=== PATIENT | female | born 1955 | race Caucasian/White ===

== ENCOUNTER 2020-01-21 00:45 | Outpatient (CLI) | payer OTHER, SELFPAY ==
[2020-01-21 17:37] LABS: SARS-CoV-2 RNA PCR Negative
== END 2020-01-21 00:46 | disposition home or self-care (01) ==
LOC: ANHCOVIDDT 00:45
PROVIDERS: PCP Student in an Organized Health Care Education/Training Program; Visit Provider Internal Medicine Gastroenterology
DX: Z01.812 Encounter for preprocedural laboratory examination (principal); Z20.828 Contact with and (suspected) exposure to other viral communicable diseases
CPT/HCPCS: 87635; C9803; U0003

== ENCOUNTER 2020-01-24 00:35 | Day surgery (SDC) | payer OTHER, SELFPAY ==
[2020-01-16 14:44] VITALS: BMI 22.7
[2020-01-24 06:54] VITALS: BP 149/87; PULSE 73; RESP 16; TEMP 36.8; O2SAT 99; BMI 23.6
[2020-01-24] MEDS: LACTATED RINGERS 1,000 ML 150 ML IV CONT (07:06)
--- NOTE | 2020-01-24 07:12 | WPDANESEPPF ---
Anes - Initial Pre Proc Eval Procedure: Operation Date: 01/24/20 08:00 Proposed Procedures p Esophagogastroduodenoscopy - Westley Cha MD Date/Time: 01/24/20 07:12 Surgeon: Westley Cha MD Pre Op Diagnosis: Gerd/ Dysphagia Patient Data Age: 64 Gender: F Height: 5 ft 7 in Weight: 68.5 kg Last Vital Signs Temp 36.8 C 01/24/20 06:54 Pulse 73 01/24/20 06:54 Resp 16 01/24/20 06:54 BP 149/87 H 01/24/20 06:54 Pulse Ox 99 01/24/20 06:54 Allergies Allergy/AdvReac Type Severity Reaction Status Date / Time nitrofurantoin Allergy Unknown Nausea Verified 01/24/20 06:49 Home Medications Medication Instructions Recorded Confirmed Type evolocumab [Repatha SureClick] 140 mg SUBCUT 2XW 01/16/20 01/16/20 History lisinopril 10 mg PO DAILY 01/16/20 01/24/20 History pantoprazole 40 mg PO BID 01/16/20 01/24/20 History venlafaxine 225 mg PO BID 01/16/20 01/24/20 History Patient hx anesthesia problems: none Family hx anesthesia problems: none PMFSH Past Medical History Medical History (Updated 01/24/20 @ 07:13 by Maynor Montalvo MD) Dysphagia HTN (hypertension) Hyperlipidemia NHAN on CPAP Surgical History Surgical History (Updated 01/24/20 @ 07:13 by Maynor Montalvo MD) H/O colonoscopy Social History Social History Substance use type: does not use Living arrangements: with family Gender identity (if verbalized by the patient): Female Spiritual care concerns: No Anes - Eval Final PreProcedure Day of Procedure 01/24/20 07:12 Patient weight: normal Heart: regular rate and rhythm Lungs: clear to auscultation Airway: Mallampati scale class II and class III and special considerations poor opening Neurological: alert and oriented Last oral intake: >/= 8 hours ASA classification: III Emergent: no Anesthetic plan: proceed Anesthesia type and monitoring: general GIVS and standard monitoring Informed Consent: The patient's anesthetic plan and its attendant risks and benefits were discussed with the patient/family/POA. Questions were solicited and answers provided to the satisfaction of the patient/family/POA.
--- NOTE | 2020-01-24 07:25 | P.CONGI_ITS ---
Assessment and Plan Assessment and plan (1) GERD (gastroesophageal reflux disease): Code(s): K21.9 - Gastro-esophageal reflux disease without esophagitis Status: Acute (2) Dysphagia: Code(s): R13.10 - Dysphagia, unspecified Status: Acute Assessment and Plan: Patient has difficulty swallowing. Suggesting some narrowing of the esophagus or delayed motility. Plan is for EGD to assess more thoroughly. Patient is felt to have acid reflux for which she chronically has been on proton pump inhibitors. Further recommendations may be given after endoscopy. GI Consult Note Consult date/time: 01/24/20 07:25 HPI: Jarad Jj is a 64 year old female seen at the request of DR Twin Claros. Patient has had heartburn for 25 years. Notes difficulty passing foods. Solids past more slowly in the chest compared to liquids. Often has difficulty even swallowing liquids. In the past been told she had GE reflux disease. She was known to have esophagitis. Apparently had sore esophagus by EGD 15 years ago. Her symptoms of difficulty swallowing have worsened over the last 4 months. Patient denies any bleeding. She denies any weight loss. Current medications include pantoprazole 40 mg p.o. b.i.d.. Patient presents today for EGD. [facility] Past Medical History Medical History (Updated 01/24/20 @ 07:27 by Westley Cha MD) Dysphagia HTN (hypertension) Hyperlipidemia NHAN on CPAP Surgical History Surgical History (Updated 01/24/20 @ 07:13 by Maynor Montalvo MD) H/O colonoscopy Social History Social History Substance use type: does not use Living arrangements: with family Gender identity (if verbalized by the patient): Female Spiritual care concerns: No Meds Home Medications and Allergies Home Medications Medication Instructions Recorded Confirmed Type evolocumab [Repatha SureClick] 140 mg SUBCUT 2XW 01/16/20 01/16/20 History lisinopril 10 mg PO DAILY 01/16/20 01/24/20 History pantoprazole 40 mg PO BID 01/16/20 01/24/20 History venlafaxine 225 mg PO BID 01/16/20 01/24/20 History Allergies Allergy/AdvReac Type Severity Reaction Status Date / Time nitrofurantoin Allergy Unknown Nausea Verified 01/24/20 06:49 Vital Signs Vital Signs - 24 hr 01/24/20 06:54 Temperature 98.2 F Pulse Rate 73 Respiratory Rate 16 Blood Pressure 149/87 H Pulse Oximetry 99 Exam Narrative: Exam Narrative: Physical exam reveals patient to be alert. Vital signs stable. HEENT exam unremarkable. Patient is anicteric. Lungs are clear to auscultation and percussion. Heart is without murmur or extra sounds. Abdominal exam bowel sounds are present soft nontender with no organomegaly. Rectal exam is deferred at this time.
[2020-01-24] MEDS: BENZOCAINE (*SP) 60 ML SPRAY CAN (HURRICAINE) 1 SPRAY MUCOUS MEM (08:02)
[2020-01-24 08:23] VITALS: BP 134/79; PULSE 80; RESP 20; O2SAT 98
[2020-01-24 08:33] VITALS: BP 133/83; PULSE 65; RESP 20; O2SAT 100
[2020-01-24 08:43] VITALS: BP 138/96; PULSE 66; RESP 14; O2SAT 100
== END 2020-01-24 08:57 | disposition home or self-care (01) ==
PROVIDERS: PCP Student in an Organized Health Care Education/Training Program; Visit Provider Internal Medicine Gastroenterology
PROC: 0DJ08ZZ Inspection of Upper Intestinal Tract, Via Natural or Artificial Opening Endoscopic (ICD-10-PCS; CPT 43235; principal; 2020-01-24 08:00)
DX: K21.9 Gastro-esophageal reflux disease without esophagitis (principal); Q39.4 Esophageal web; K44.9 Diaphragmatic hernia without obstruction or gangrene; I10 Essential (primary) hypertension; E78.5 Hyperlipidemia, unspecified; G47.33 Obstructive sleep apnea (adult) (pediatric)
CPT/HCPCS: 43450; 43235; C1726; J2704; J7120

== ENCOUNTER 2020-07-20 12:47 | Outpatient (CLI) | payer OTHER, SELFPAY ==
[2020-07-20 13:15] VITALS: PULSE 77; O2SAT 98
[2020-07-20 13:20] VITALS: PULSE 99; O2SAT 97
--- NOTE | 2020-07-20 13:30 | HOMEO2EVAL ---
Evaluation was performed at [facility] Home Oxygen Evaluation RC: Home Oxygen (O2) Evaluation Start: 07/20/20 13:27 Freq: Status: Active Protocol: RPE Activity Type Activity Date Activity User E-Sign Co-Sign Detail Recorded Client Recorded Date Recorded By Document 07/20/20 13:15 KLA [id number] 07/20/20 13:30 KLA Document 07/20/20 13:20 KLA [id number] 07/20/20 13:30 KLA 07/20/20 07/20/20 13:15 13:20 Home O2 Evaluation Test Phase Resting Exercise Oxygen Delivery Room Air Room Air Pulse Oximetry (90-100 %) 98 97 Pulse Rate (60-100 beats/min) 77 99 Activity Tolerance Excellent Ambulation Distance (feet) 400 Treatment Charges O2 Evaluation - Outpatient
--- NOTE | 2020-07-20 17:00 | P.PCNPFT_ITS ---
PFT Interpretation This is a pulmonary function test with pre and post-bronchodilator spirometry, plethysmography and diffusing capacity. The test was performed and results interpreted in accordance with the 2019 and 2005 ATS/ERS Task Force guidelines respectively using the Global Lung Function Initiative-2012 reference equations. Patient demonstrated good effort and c ooperation. Reproducibility criteria were met. The quality of the pre bronchodilator spirometry maneuver was Grade B and post bronchodilator spirometry maneuver was Grade B. Findings: Spirometry: There is decreased maximal expiratory airflow at low lung volumes with a mildly concave expiratory flow tracing. The pre bronchodilator FVC is 3.32 L, 101% predicted. The pre bronchodilator FEV1 is 2.35 L, 92% predicted. The FEV1: FVC ratio 71%. The post bronchodilator FVC is 3.39 L, representing a 2% increase. The post bronchodilator FEV1 is 2.48 L, representing a 5% increase. Plethysmography: Total lung capacity is 5.69 L, 106% predicted. The functional residual capacity is 3.44 L, 112% predicted. The residual volume is 1.95 L, 90% predicted. Diffusing capacity: The absolute diffusion capacity is 17.6, 80% predicted. The diffusing capacity corrected for alveolar volume is 4.19, 98% predicted. Impression: The spirometry is normal without evidence of an obstructive abnormality. There is no significant improvement after inhaling a single dose of albuterol. The lung volumes are normal. The diffusing capacity is normal. There are no prior studies for comparison Report PFT PFT Procedure Performed PFT Procedure Performed Spirometry with Pre/Post Bronchodilator Plethysmography (Lung Vol) Diffusing Cap (DLCO)
== END 2020-07-20 12:48 | disposition home or self-care (01) ==
PROVIDERS: PCP Student in an Organized Health Care Education/Training Program; Visit Provider Internal Medicine Pulmonary Disease
DX: R06.02 Shortness of breath (principal); R06.00 Dyspnea, unspecified
CPT/HCPCS: 94060; 94618; 94726; 94729

== ENCOUNTER 2020-08-23 07:56 | Outpatient (CLI) | payer OTHER, SELFPAY ==
--- NOTE | ~2020-08-23 | MM_ITS ---
EXAMINATION: MM screening [facility] BI w milan HISTORY: Screening TECHNIQUE: Craniocaudal and mediolateral oblique 3-D tomosynthesis images were obtained and synthetic 2-D images were generated. CAD analysis was submitted and interpreted. COMPARISON: Comparison to multiple prior studies sequentially, with oldest reviewed study dated 02/06. BREAST PARENCHYMAL COMPOSITION: There are scattered areas of fibroglandular density. FINDINGS: There is no evidence of suspicious mass, calcification, or architectural distortion to sugg est malignancy in either breast. There has been no suspicious interval change. IMPRESSION: 1. No mammographic evidence of malignancy. 2. Recommend routine screening mammography in one year. BI-RADS Category 1: Negative Reviewed, dictated and finalized at location A.
== END 2020-08-23 07:57 | disposition home or self-care (01) ==
PROVIDERS: PCP Student in an Organized Health Care Education/Training Program; Visit Provider Student in an Organized Health Care Education/Training Program
DX: Z12.31 Encounter for screening mammogram for malignant neoplasm of breast (principal)
CPT/HCPCS: 77063; 77067

== ENCOUNTER → 2020-10-03 17:42 | Outpatient (CLI) | payer OTHER, SELFPAY ==
--- NOTE | ~2020-10-03 | XR_ITS ---
EXAMINATION: XR chest 2V EXAM DATE: 10/03/2020 17:56 INDICATION: R06.02 - Shortness of breath . Cough. Symptoms 6 months. TECHNIQUE: Frontal and lateral projections of the chest obtained and reviewed. Comparison is made to prior examination from 08/08/2007. FINDINGS: There is large gastroesophageal hiatal hernia. There is right basilar granuloma. Some biapi lulú scarring. The lungs are hyperinflated which can be seen with chronic obstructive pulmonary diseas e (a clinical diagnosis of functional impairment), but is not diagnostic of it. No confluent consolid ation, pneumothorax or pleural effusion suspected. Cardiomediastinal silhouette is normal. IMPRESSION: 1. Large hiatal hernia. 2. Hyperinflation. Reviewed, dictated and finalized at location G.
== END ==
PROVIDERS: Visit Provider Internal Medicine Pulmonary Disease
DX: R06.02 Shortness of breath (principal); K44.9 Diaphragmatic hernia without obstruction or gangrene
CPT/HCPCS: 71046

== ENCOUNTER 2020-11-05 10:25 | Outpatient (CLI) | payer OTHER, SELFPAY ==
--- NOTE | ~2020-11-05 | CT_ITS ---
EXAMINATION:CT diagnostic chest wo con DATE: 11/05/2020 11:05 INDICATION: Chronic shortness of breath. TECHNIQUE: Computed tomography (CT) of the chest was performed without intravenous contrast. Automate d exposure control and iterative reconstruction technique were employed. The dose-length product (DLP ) was 143.50 mGy-cm. COMPARISON: Chest CT 08/09/2007, chest 2 views 10/03/2020 FINDINGS: There is chronic mild scarring at the lung apices. There is a pneumatocele in right lower l obe. A calcified right lung nodule and calcified right hilar and mediastinal lymph nodes are consiste nt with old granulomatous disease. No pleural effusion. The heart size is normal. No pericardial effu adrianna. There is a large sliding hiatal hernia. There are changes of cholecystectomy. There is diffuse hepatic steatosis. There is mild thoracic spondylosis. There is a benign bone island in T5 vertebral body. IMPRESSION: 1. Chronic mild scarring at the lung apices. 2. Large sliding hiatal hernia. Reviewed, dictated and finalized at location A.
== END 2020-11-05 10:26 | disposition home or self-care (01) ==
PROVIDERS: PCP Student in an Organized Health Care Education/Training Program; Visit Provider Internal Medicine Pulmonary Disease
DX: R06.02 Shortness of breath (principal); K44.9 Diaphragmatic hernia without obstruction or gangrene
CPT/HCPCS: 71250

== ENCOUNTER 2021-01-14 08:19 | Outpatient (CLI) | payer OTHER, SELFPAY ==
--- NOTE | ~2021-01-14 | XR_ITS ---
EXAMINATION: XR UGIAC w barium swallow EXAM DATE: 01/14/2021 09:01 INDICATION: K44.9 - Diaphragmatic hernia without obstruction or gangrene. TECHNIQUE: Standard single and double contrast barium esophagram and upper GI examination was perform ed by radiologist Mani Plascencia M.D. Pulsed dose reduction fluoroscopy was used with fluoroscopic time of 0.6 minutes. A KUB obtained after the procedure. The DAP for this procedure was 3.4 Gycm2. A tot al of 99 images obtained for the exam. Correlation is made to CT chest 11/05/2020. FINDINGS: There are cholecystectomy clips. The pharynx is symmetric and without evidence of mass le adrianna or mucosal irregularity. There is no esophageal stricture, diverticulum or mass identified. The re is moderate presbyesophagus. There is a large sliding gastroesophageal hiatal hernia, gastric card ia and half of the gastric body in the chest. The stomach has a normal appearance without evidence of mass lesion, ulceration or filling defect. T here is normal rugal fold pattern. The duodenum and duodenal sweep are normal in appearance. IMPRESSION: 1. Large gastroesophageal hiatal hernia. 2. Moderate presbyesophagus. Reviewed, dictated and finalized at location A.
== END 2021-01-14 08:20 | disposition home or self-care (01) ==
LOC: ANHIMG 08:23
PROVIDERS: PCP Student in an Organized Health Care Education/Training Program; Visit Provider Surgery
DX: K44.9 Diaphragmatic hernia without obstruction or gangrene (principal); K22.89 Other specified disease of esophagus
CPT/HCPCS: 74246

== ENCOUNTER 2021-02-14 10:26 | Outpatient (CLI) | payer OTHER, SELFPAY ==
--- NOTE | ~2021-02-14 | XR_ITS ---
EXAMINATION: XR chest 2V DATE: 02/14/2021 10:52 INDICATION: Gastroesophageal reflux disease without esophagitis TECHNIQUE: Frontal and lateral views of the chest are obtained COMPARISON: 10/03/2020 FINDINGS: There is scarring of the lung apices. The lungs are free of acute opacities. There is no pl eural effusion or pneumothorax. The heart size is normal. There is a large hiatal hernia. There is mi ld thoracic spondylosis. IMPRESSION: 1. No acute cardiopulmonary abnormality. 2. Large hiatal hernia. Reviewed, dictated and finalized at location B. RAISER
--- NOTE | 2021-02-14 10:30 | ECG_ITS ---
Measurements Intervals [place] Rate: 74 P: 66 VA: 130 QRS: 60 QRSD: 93 T: 39 QT: 347 QTc: 386 Interpretive Statements SINUS RHYTHM POSSIBLE LEFT ATRIAL ENLARGEMENT DELAYED PRECORDIAL R/S TRANSITION BASELINE ARTIFACT- II, III, AVF BORDERLINE ECG Electronically Signed On 02-14-2021 19:30:33 SAND WHEELER by Alex Huddleston D.O.
[2021-02-14 11:12] LABS: Basophils Percent Auto 0.7 % (0.2-1.2); Eosinophils Absolute Auto 0.3 K/mm3 (0-0.3); Eosinophils Percent Auto 5.3 % (0-4.4); Hematocrit 45.8 % (37.0-47.0); Hemoglobin 15.1 g/dL (12.0-15.0); Immature Granulocyte Absolute 0.01 K/mm3 (0.00-0.031); Immature Granulocyte Percent A 0.2 % (0-0.5); Lymphocytes Absolute Auto 2.25 K/mm3 (0.9-3.2); Lymphocytes Percent Auto 41.4 % (18.3-44.2); Mean Corpuscular Hemoglobin 30.2 pg (26-34); Mean Corpuscular Volume 91.6 fl (80-100); Mean Platelet Volume 10.9 fl (7.4-10.4); Monocytes Absolute Auto 0.4 K/mm3 (0.1-0.6); Monocytes Percent Auto 7.4 % (2.6-8.5); Neutrophils Absolute Auto 2.4 K/mm3 (1.3-6.7); Platelet Count Result 271 k/mm3 (150-375); Red Cell Distribution Width 12.6 % (11.5-14.5); White Blood Count 5.4 K/mm3 (4.5-10.0)
[2021-02-14 11:26] LABS: Anion Gap 11 mmol/L (8-16); Blood Urea Nitrogen 12 mg/dL (7-17); Calcium 9.4 mg/dL (8.4-10.2); Carbon Dioxide 25 mmol/L (22-30); Chloride 105 mmol/L (98-107); Estimated Glomerular Filt Rate > 60; Glucose 127 mg/dL (65-110); Potassium 4.2 mmol/L (3.4-5.0); Sodium 141 mmol/L (137-145)
== END 2021-02-14 10:27 | disposition home or self-care (01) ==
LOC: ANHSURGERY 10:29
PROVIDERS: PCP Student in an Organized Health Care Education/Training Program; Visit Provider Surgery
DX: K44.9 Diaphragmatic hernia without obstruction or gangrene (principal); K21.9 Gastro-esophageal reflux disease without esophagitis; R94.31 Abnormal electrocardiogram [ECG] [EKG]
CPT/HCPCS: 36415; 71046; 80048; 85025; 86850; 86900; 86901; 93005

== ENCOUNTER 2021-02-22 14:21 | Inpatient (IN) | payer OTHER, SELFPAY ==
[2021-02-13 12:47] VITALS: BMI 22.8
--- NOTE | 2021-02-13 12:54 | PC.NURSE ---
Addendum entered by Becka Dias RN 02/15/21 09:32: PT CALLED IN, STATES DATE OF SURGERY ON INSTRUCTIONS SAYS 02/22, SHOULD BE 02/21. CONFIRMED WITH PT THAT SURGERY IS 02/21/21 AND ARRIVAL TIME IS 0830 WITH SURGERY AT 1030. Original Note: Report to the Outpatient Waiting Room, entrance under the green pavilion located off [facility], at time _0830__ on date 02/22/21_. OR Time: _1030__. - You and your visitor will be asked a series of questions to screen for COVID 19 for your protection. - A mask is required within the hospital. - Only one visitor is allowed at this time. Patient visitors will be guided where to wait when not with patient. Preoperative COVID Testing Requirements: No COVID Test needed if: (proof is required; if not received patient will have Rapid Test prior to entry) - Patient has received COVID Vaccine at least 14 days prior to procedure date or - Patient has positive COVID test result within last 90 days of surgery date. COVID Test needed if above criteria is not met If not COVID vaccinated a COVID test must be conducted within 72 hours of surgery and patient is asked to isolate self from time of testing until procedure. You will go to the [facility] for your COVID testing. The [facility] site is located at the corner of [address] [facility]. You will only be called if COVID results are positive and your surgeon may reschedule your elective surgery date. Patients may have clear liquids (water, carbonated beverages, clear teas, apple juice) until 3 hours prior to surgery (0730) with a maximum of 20 ounces. - No food from midnight until time of surgery - Infants may have breast milk until 4 hours before surgery, formula 6 hours prior to surgery. - Children will be allowed to drink immediately following surgery. If applicable, please bring a bottle or sippy cup to assist with drinking. Juice, water, soda, and popsicles are readily available. For infants on formula, please bring formula the day of surgery. Pacifiers are allowed. Take the following medications with a SIP of water the morning of surgery: ___VENLAFAXINE, INHALER IF NEEDED Medications to discontinue per physician Date to take last dose Please no make-up, nail citizen of [place], hairspray, perfume, deodorant, or body powder the day of surgery. No jewelry (including any body piercings) or valuables the day of surgery, leave them at home. Please take a shower or bath the night before, or the morning of, surgery with an antibacterial soap. Wear comfortable, loose fitting clothing. Children are encouraged to wear pajamas. - Jewelry must be removed prior to entering the operating room. Rings and piercings that are not removed may be cut off. - The hospital will not accept responsibility for valuables. - Please leave all valuables, including medications, at home the day of surgery. If you are going home after surgery, a licensed river driver must drive you home. - NO public transportation without another adult. - We recommend that an adult stay with you for 24 hours following discharge. - We also recommend that you do not drive, make important decision, drink alcoholic beverages, or take any drugs that were not prescribed by your health care provider for at least 24 hours after your discharge time. For Pediatric surgeries, we recommend two adults accompany the child home (only one inside the building at this time). Follow any additional instructions given to you from your surgeon. [facility] AM OF SURGERY Telephone instructions given to ___PT____and asked if any additional questions and then verbalized understanding. Patient advised to call surgeon office or pre surgery nurse liaison [phone] if any additional questions.
--- NOTE | 2021-02-19 12:27 | PM.IMHP ---
H&P: HPI History of Present Illness Date/Time: 02/19/21 12:27 Chief Complaint: acid reflux, epigastric abdominal pain Narrative: Ms. Jj is a 65 year old female who presents for a surgical evaluation for a large hiatal hernia at the request of Jaki Moran N.P. Patient has a long history of acid reflux, dysphagia and epigastric pain. She notes a cough and shortness of breath for the last 9 months. She feels like a a tightening in the upper chest. She will be walk and feel like she is unable to take get a breath. She has been worked up by pulmonology and was placed on inhalers to see if this would improve her dyspnea. She is a non smoker. She is has been taking Protonix 40mg BID without success. She was recently changed to Omeprazole 40 mg daily. She reports that gets nauseated and some foods gets stuck in the epigastric area. A EGD was performed on 01-24-[address] 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 The esophageal web appeared at a depth of 30 cm from the incisions. A Walker bougie dilation was performed. The size was 50 FR. A TTS balloon dilation was performed using 15 mm, 16.5mm and 18 mm balloons. A large hiatal hernia was found in the gastric cardia. The hiatal hernia appear at a depth of 30 cm to 40 cm from the incisors. The gastroesophageal junction was 30 cm from the incision. She was recommended to continue Pantoprazole 40 mg BID. A chest x-ray was performed on 09-23-20 which showed a large hiatal hernia. A Ct scan diagnostic chest without contrast performed on 11-05-20 showed chronic mild scarring a the lung apices and large sliding hiatal hernia. patient underwent an esophagram with upper GI on 01/14/2021. This showed a large gastroesophageal hiatal hernia and moderate presbyesophagus. Half of the gastric body was noted to be in the chest. Esophageal manometry done 01/04/2021 showed adequate esophageal body peristalsis. There was some elevated post swallow residual pressures and hiatal hernia. Patient is taken to surgery at this time for laparoscopic repair of large hiatal hernia with Josh fundoplication. She is currently on inhalers for possible asthma, HTN, GERD and depression. Her current BMI 24.1. She had a laparoscopic cholecystectomy about 10 years ago. Review of Systems Review of Systems: All systems reviewed & are unremarkable except as noted in HPI and below Constitutional: Constitutional: Denies chills and Denies fever(s) Cardiovascular: Cardiovascular: Denies chest pain, Denies diaphoresis, Denies dyspnea and Denies paroxysmal nocturnal dyspnea Respiratory: Respiratory: Denies chest congestion, Denies cough and Denies dyspnea Integumentary/Breasts: Skin/Breast: Denies lesions and Denies rash PMFSH Past Medical History Medical History Dysphagia GERD (gastroesophageal reflux disease) Hiatal hernia HTN (hypertension) Hyperlipidemia NHAN on CPAP Surgical History Surgical History H/O colonoscopy History of cholecystectomy Family History Family History Grandparent Diabetes mellitus Cerebrovascular accident Social History Social History Smoking status: Never smoker Second hand tobacco smoke exposure: No Alcohol intake: current Alcohol use details: STATES MAYBE 2/MONTH Substance use: never Substance use type: does not use 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
--- NOTE | 2021-02-20 14:14 | P.PNAN_ITS ---
Anes - Initial Pre Proc Eval Procedure: Operation Date: 02/21/21 10:30 Proposed Procedures p Laparoscopic Josh Fundoplication - Rommel Pearce MD Date/Time: 02/20/21 14:14 Surgeon: Rommel Pearce MD Pre Op Diagnosis: GERD, Hiatal Hernia Patient Data Age: 66 Gender: F Height: 1.68 m Weight: 64.09 kg Allergies Allergy/AdvReac Type Severity Reaction Status Date / Time nitrofurantoin Allergy Unknown Nausea Verified 02/13/21 12:43 Home Medications Medication Instructions Recorded Confirmed Type evolocumab [Repatha SureClick] See Rx Instructions .ROUTE .COMPLEX 01/16/20 02/21/21 History lisinopril 10 mg PO DAILY 01/16/20 02/21/21 History venlafaxine 225 mg PO BID 01/16/20 02/21/21 History cholecalciferol (vitamin D3) 125 125 mcg PO DAILY 07/05/20 02/21/21 History mcg (5,000 unit) capsule albuterol sulfate 90 mcg/actuation 2 inh INHALATION Q4H PRN #8.5 g 11/08/20 02/21/21 Rx aerosol inhaler omeprazole 40 mg capsule,delayed 40 mg PO DAILY #30 cap 11/19/20 02/21/21 Rx release Patient hx anesthesia problems: none Family hx anesthesia problems: none Results Review: All pre-operative results and documents have been reviewed as part of the pre-operative evaluation. [facility] Past Medical History Medical History (Updated 02/20/21 @ 14:15 by Deven Ng MD) Anxiety Depression Dysphagia GERD (gastroesophageal reflux disease) Hiatal hernia HTN (hypertension) Hyperlipidemia NHAN on CPAP Surgical History Surgical History H/O colonoscopy History of cholecystectomy Family History Family History Grandparent Diabetes mellitus Cerebrovascular accident Social History Social History Smoking status: Never smoker Second hand tobacco smoke exposure: No Alcohol intake: current Alcohol use details: social Substance use: never Substance use type: does not use Living arrangements: with family 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 Informed Consent: The patient's anesthetic plan and its attendant risks and benefits were discussed with the patient/family/POA. Questions were solicited and answers provided to the satisfaction of the patient/family/POA.
[2021-02-21] VITALS (13 sets, daily range): BP systolic 114–173; BP diastolic 69–94; PULSE 77–95; RESP 14–18; TEMP 36.3–37; O2SAT 94–99
[2021-02-21] MEDS: LACTATED RINGERS 1,000 ML 30 ML IV CONT ×2 (09:35→14:22)
--- NOTE | 2021-02-21 10:56 | WPDHPUPDATE1 ---
History and Physical Update Update Date/Time: 02/21/21 10:56 History and Physical has been reviewed, including an updated exam of the patient. There are NO changes in the patient's condition. Risks, benefits, and alternatives have been discussed and questions answered. Patient agrees to proceed with procedure.
[2021-02-21] MEDS: SCOPOLAMINE 1.5 MG PATCH TRANSDERM (11:03)
[2021-02-21] MEDS: ceFAZolin 2 GM/D5W 50 ML 2 GM/50 ML BAG IVPB (11:11)
[2021-02-21] MEDS: BUPIVACAINE HCL 0.5% PF 30 ML VIAL INFILTRATE (11:48)
--- NOTE | 2021-02-21 14:49 | SUR.PHASEI ---
1425; PT FACE RED, RT EYE SWELLING, BILAT CHEEKS MILD SWELLING. HOB ELEVATED 30 DEGREES. ANDIE PAINTER ROUGH STATES FROM THE GAS USED IN OR
--- NOTE | 2021-02-21 15:28 | SUR.PHASEI ---
pt c/o bilat shoulder discomfort. Dr Pearce at bedside. DIscussing facial and rt eye swelling from air/gas inflation. Along with shoulder discomfort
--- NOTE | 2021-02-21 16:04 | PC.NURSE ---
This patient, Jarad Jj, was admitted to Medical Room 257-01. Patient/family oriented to hospital policies and general routines including ID bracelet, bed and alarms, visiting hours, pain management, procedures, bathroom and other care routines, personal items, smoking policy, room service/diet, and visiting hours. Information on how to activate the Rapid Response Team has been discussed. Patient/Family are encouraged to report perceived risks to care and to ask questions if they do not understand what they are told or what they should do.
[2021-02-21] MEDS: LACTATED RINGERS 1,000 ML 80 ML IV CONT (16:27)
[2021-02-21] MEDS: ACETAMINOPHEN 500 MG TABLET PO (16:28)
[2021-02-21] MEDS: lisinopriL 10 MG TABLET PO (17:08)
--- NOTE | 2021-02-21 17:08 | W.PM.PROC2 ---
Procedure Note - Detailed Date of Procedure 02/21/21 Pre-op Diagnosis GERD, Hiatal Hernia Post-op Diagnosis same Procedure Performed Laparoscopic repair of hiatal hernia, laparoscopic Josh fundoplication Surgeon Rommel Pearce MD [facility] Daley D.O., [facility] Anesthesia general and local ( 0.5% Marcaine) Indications patient is a 66-year-old woman with a large hiatal hernia and symptoms of reflux as well as epigastric pain and shortness of breath. She has had endoscopy and upper GI imaging. She had esophageal manometry which showed adequate esophageal body motility. She is taken to surgery now for laparoscopic repair of her hiatal hernia and Josh fundoplication. Findings Large hiatal hernia as expected. There was esophageal shortening. No other significant findings were noted. Description of Procedure Patient was taken to surgery and induced into general anesthesia. The abdomen was prepped and draped. The varies needle was used for the initial placement of insufflation. This was just cephalad to the umbilicus in the midline. With the abdomen distended, we then used applied Medical [address] the initial port. Then with full insufflation, the remaining ports were placed. Two ports were placed on either side of the midline higher in the abdomen. A right and left subcostal lateral ports were placed on each side. The left side was a 10 11 port the right side was a 12 mm port. Patient was placed in reverse Trendelenburg. Liver retractor was introduced through the left-sided 12 mm port. This was placed under the lateral segment of the left lobe of the liver and an nurses medical assistants phlebotomists retracted this throughout the surgery. We started the surgery by dividing the gastrohepatic ligament in a clear area. The LigaSure was used for nearly the entire dissection. We continued the dissection on to the right geeta and exposed it. We then the geeta from the hernia sac on the right side and began dissection up into the mediastinum. This was mostly done with blunt dissection although some LigaSure cautery was used as well. We freed the hernia sac and reduced the stomach entirely. We continued our dissection and were able to reduce the hernia sac completely. The most posterior aspect of the left geeta was also exposed and dissected. We freed the esophagus from mediastinal adhesions in the lower portion of the mediastinum primarily from the anterior and right aspects. From there, the stomach was pulled so up so the greater curvature was elevated anterior and we placed traction on the greater omentum. The LigaSure was used to divide the greater omentum from the greater curvature of the stomach and enter the lesser sac. This dissection was continued cephalad along the border of the fundus and cardia of the stomach until we were in the area of the esophageal hiatus. Additional adhesions of the posterior aspect of the stomach to the retroperitoneum were divided with LigaSure as well. The hernia sac was dissected out of the mediastinum from the patient's left side from this exposure. Eventually the entire left geeta was dissected free from adhesions and the hernia sac. We continued our dissection of the distal esophagus from this exposure and dissected up well into the mediastinum freeing the esophagus. Care was taken to avoid injury to the vagus nerves. We then returned the stomach to its more normal position and resumed dissection on the right side of the esophagus. With gentle traction on the upper stomach and lower esophagus at the level of the left geeta, I was able to continued dissection of the mediastinum and the esophagus farther up on the patient's right side. There was quite a large hernia sac present. We then went about freeing the hernia sac from the edges of the stomach and lesser omentum. Several pieces of hernia sac were removed and discarded. We then placed a [place] drain around the distal esophagus
[2021-02-21] MEDS: HYDROcodone/acetaminophen (*CRX) 7.5-325 MG TABLET 1 TAB PO (17:59)
[2021-02-21] MEDS: VENLAFAXINE HCL 75 MG TABLET 225 MG PO (20:53)
[2021-02-22] VITALS (7 sets, daily range): BP systolic 120–147; BP diastolic 66–93; PULSE 74–85; RESP 14–16; TEMP 36.7–37.2; O2SAT 95–97
[2021-02-22] MEDS: HYDROcodone/acetaminophen (*CRX) 7.5-325 MG TABLET 1 TAB PO ×3 (03:09→17:37)
[2021-02-22] MEDS: LACTATED RINGERS 1,000 ML 80 ML IV CONT (04:29)
[2021-02-22 05:21] LABS: Hematocrit 40.1 % (37.0-47.0); Hemoglobin 13.4 g/dL (12.0-15.0); Mean Corpuscular HGB Conc 33.4 g/dl (32-36); Mean Corpuscular Hemoglobin 30.1 pg (26-34); Mean Corpuscular Volume 90.1 fl (80-100); Mean Platelet Volume 10.9 fl (7.4-10.4); Platelet Count Result 264 k/mm3 (150-375); Red Blood Count 4.45 M/mm3 (4.2-5.4); Red Cell Distribution Width 12.2 % (11.5-14.5); White Blood Count 9.9 K/mm3 (4.5-10.0)
[2021-02-22 05:34] LABS: Anion Gap 9 mmol/L (8-16); Blood Urea Nitrogen 12 mg/dL (7-17); Carbon Dioxide 27 mmol/L (22-30); Chloride 100 mmol/L (98-107); Estimated CRCL calculation 74 ml/min; Estimated Glomerular Filt Rate > 60; Glucose 117 mg/dL (65-110); Potassium 4.2 mmol/L (3.4-5.0); Sodium 136 mmol/L (137-145)
[2021-02-22] MEDS: ENOXAPARIN 40 MG/0.4 ML SYRINGE SUB-Q (07:45)
[2021-02-22] MEDS: VENLAFAXINE HCL 75 MG TABLET 225 MG PO ×2 (07:46→20:32)
[2021-02-22] MEDS: lisinopriL 10 MG TABLET PO (07:46)
[2021-02-22] MEDS: PANTOPRAZOLE 40 MG TABLET PO (07:46)
--- NOTE | 2021-02-22 09:02 | WPDANESPN ---
Anes - Prog Note Post-Op Date/Time: 02/22/21 09:02 Cardiovascular status: normal Respiratory status: normal Airway patency: baseline Mental status: baseline Post-Op hydration status: normal Vital Signs: Last Vital Signs Temp 36.9 C 02/22/21 05:39 Pulse 74 02/22/21 05:39 Resp 16 02/22/21 05:39 BP 139/67 02/22/21 05:39 Pulse Ox 96 02/22/21 05:39 Pain Score (VAS): 0 I/O: Intake & Output 02/21/21 02/22/21 02/22/21 23:59 07:59 15:59 Intake Total 1450 Output Total 450 450 Balance -450 1450 -450 Laboratory Tests 02/22/21 04:55 02/22/21 04:55 02/22/21 02/22/21 04:55 04:55 WBC 9.9 RBC 4.45 Hgb 13.4 Hct 40.1 MCV 90.1 MCH 30.1 MCHC 33.4 RDW 12.2 Plt Count 264 MPV 10.9 H Sodium 136 L Potassium 4.2 Chloride 100 Carbon Dioxide 27 Anion Gap 9 BUN 12 Creatinine 0.60 L Estim Creat Clear Calc 74 Estimated GFR > 60 Glucose 117 H Calcium 9.0 Post-procedural complaints: none Patient Feedback: Patient satisfied with anesthetic care.
--- NOTE | 2021-02-22 13:01 | PM.PNGS ---
Progress Note: A&P Assessment and Plan (1) GERD (gastroesophageal reflux disease): Qualifiers: Esophagitis presence: without esophagitis Qualified Code(s): K21.9 - Gastro-esophageal reflux disease without esophagitis Code(s): K21.9 - Gastro-esophageal reflux disease without esophagitis Status: Chronic Assessment and Plan: doing well postop day 1. Status post laparoscopic Josh fundoplication with repair of large hiatal hernia. Will advance to full liquid diet. Increase ambulation. Having some dysphagia but not bad yet. Increase her walking today and possibly home in 24-48 hours. Subjective Subjective Date/Time Seen: 02/22/21 13:01 Post Op day: 1 Patient reports: no new complaints, still having pain, tolerating liquids well, no bowel movement and afebrile Review of Systems Review of Systems: All systems reviewed & are unremarkable except as noted in HPI and below Constitutional: Constitutional: Denies headache(s) Cardiovascular: Cardiovascular: Denies chest pain and Denies dyspnea Respiratory: Respiratory: Denies cough and Denies dyspnea Neurologic: Denies confusion and Denies headache(s) Exam Const: General: comfortable and no acute distress; No confusion Orientation/consciousness: patient oriented x3 and No confusion Resp: Effort & Inspection: normal respiratory effort Auscultation: clear to auscultation bilaterally GI: Inspection: non-distended and incision ( all incisions dry and healing well) GI Palp: Yes Soft to palpation, Yes Tenderness to palpation present (GI) ( incisional and epigastric area), No Guarding due to palpation present (GI) and No Rebound tenderness present Auscultation: Hypoactive bowel sounds present Neuro: General: patient oriented x3, no focal motor deficits and No confusion Extrem: General: no calf tenderness and no edema Psych: Affect: normal affect Insight: Good insight present (Psych) Judgement: Good judgement present (Psych) Objective Data Vital Signs Vital Signs: Vital Signs - 24 hr 02/21/21 14:22 02/21/21 14:35 02/21/21 14:50 Temperature 36.3 C L Pulse Rate 95 92 94 Respiratory Rate 15 14 18 Blood Pressure 135/94 H 142/79 H 173/78 H Pulse Oximetry 94 94 96 02/21/21 15:05 02/21/21 15:22 02/21/21 16:00 Temperature 36.8 C Pulse Rate 94 92 92 Respiratory Rate 16 14 16 Blood Pressure 131/72 133/75 129/73 Pulse Oximetry 94 95 95 02/21/21 16:14 02/21/21 16:15 02/21/21 16:45 Temperature 36.9 C 36.9 C Pulse Rate 89 77 Respiratory Rate 16 16 Blood Pressure 134/72 145/71 H Pulse Oximetry 95 97 96 02/21/21 17:45 02/21/21 20:14 02/21/21 21:39 Temperature 37.0 C 36.7 C Pulse Rate 93 82 Respiratory Rate 18 16 Blood Pressure 146/72 H 114/69 Pulse Oximetry 98 96 94 02/22/21 00:14 02/22/21 05:39 02/22/21 09:55 Temperature 36.7 C 36.9 C 37.2 C Pulse Rate 77 74 77 Respiratory Rate 14 16 14 Blood Pressure 120/66 139/67 134/78 Pulse Oximetry 96 96 97 Intake/Output Intake/Output: Intake & Output 02/19/21 02/20/21 02/21/21 02/22/21 23:59 23:59 23:59 23:59 Intake Total 250 1810 Output Total 450 650 Balance -200 1160 Meds/Results Medications: Active Medications Generic Name Dose Route Start Last Admin Trade Name Freq PRN Reason Stop Dose Admin Acetaminophen 500 mg 02/21/21 15:42 02/21/21 16:28 Acetaminophen 500 Mg Tablet PO 500 mg Q6H PRN Administration Mild Pain (1-3) or Fever Hydrocodone Bitart/Acetaminophen 1 tab 02/21/21 15:42 Hydrocodone/Acetaminophen (*Crx) 5-325 Mg Tablet PO Q4H PRN Pain Rated 4-6 Hydrocodone Bitart/Acetaminophen 1 tab 02/21/21 15:42 02/22/21 10:45 Hydrocodone/Acetaminophen (*Crx) 7.5-325 Mg Tablet PO 1 tab Q4H PRN Administration Pain Rated 7-10 Diphenhydramine HCl 25 mg 02/21/21 15:42 Diphenhydramine Hcl Inj 50 Mg/Ml Vial IV PUSH Q6H PRN Itching Enoxaparin Sodium 40 mg 02/22/21 09:00 02/22/21 0
[2021-02-22] MEDS: ACETAMINOPHEN 500 MG TABLET PO (18:27)
[2021-02-23 01:19] VITALS: BP 149/66; PULSE 80; RESP 16; TEMP 36.9; O2SAT 95
[2021-02-23 05:21] VITALS: BP 159/88; PULSE 83; RESP 16; TEMP 37.1; O2SAT 95
[2021-02-23 08:14] LABS: Hematocrit 41.3 % (37.0-47.0); Hemoglobin 14.1 g/dL (12.0-15.0); Mean Corpuscular HGB Conc 34.1 g/dl (32-36); Mean Corpuscular Hemoglobin 30.9 pg (26-34); Mean Corpuscular Volume 90.6 fl (80-100); Mean Platelet Volume 10.8 fl (7.4-10.4); Platelet Count Result 220 k/mm3 (150-375); Red Blood Count 4.56 M/mm3 (4.2-5.4); Red Cell Distribution Width 12.4 % (11.5-14.5)
[2021-02-23 08:23] LABS: Anion Gap 8 mmol/L (8-16); Blood Urea Nitrogen 7 mg/dL (7-17); Calcium 8.9 mg/dL (8.4-10.2); Carbon Dioxide 25 mmol/L (22-30); Chloride 100 mmol/L (98-107); Estimated CRCL calculation 88 ml/min; Estimated Glomerular Filt Rate > 60; Glucose 106 mg/dL (65-110); Potassium 3.9 mmol/L (3.4-5.0); Sodium 133 mmol/L (137-145)
[2021-02-23] MEDS: VENLAFAXINE HCL 75 MG TABLET 225 MG PO (08:35)
[2021-02-23] MEDS: ENOXAPARIN 40 MG/0.4 ML SYRINGE SUB-Q (08:35)
[2021-02-23] MEDS: lisinopriL 10 MG TABLET PO (08:35)
[2021-02-23] MEDS: PANTOPRAZOLE 40 MG TABLET PO (08:35)
[2021-02-23] MEDS: HYDROcodone/acetaminophen (*CRX) 7.5-325 MG TABLET 1 TAB PO ×2 (08:36→14:04)
[2021-02-23 09:52] VITALS: BP 130/83; PULSE 103; RESP 18; TEMP 36.8; O2SAT 97
--- NOTE | 2021-02-23 13:21 | PM.DS ---
DS: Admitting Diagnosis Discharge Date 02/23/2021 Admitting Diagnosis GERD, hiatal hernia, hypertension, obstructive sleep apnea DS: Discharge Diagnosis Discharge Diagnosis (1) GERD (gastroesophageal reflux disease): Qualifiers: Esophagitis presence: without esophagitis Qualified Code(s): K21.9 - Gastro-esophageal reflux disease without esophagitis Code(s): K21.9 - Gastro-esophageal reflux disease without esophagitis Status: Chronic (2) Hiatal hernia: Code(s): K44.9 - Diaphragmatic hernia without obstruction or gangrene Status: Chronic (3) HTN (hypertension): Code(s): I10 - Essential (primary) hypertension Status: Chronic (4) NHAN (obstructive sleep apnea): Code(s): G47.33 - Obstructive sleep apnea (adult) (pediatric) Status: Chronic DS: Summary Hospital Course Reason for hospitalization: postoperative recovery after laparoscopic hiatal hernia repair with Josh fundoplication Hospital Course: this is a 66-year-old woman who presented for elective laparoscopic repair of hiatal hernia with Josh fundoplication on 02/21/2021. Surgery was uncomplicated and patient was admitted to the surgical floor postoperatively. She was started on clear liquid diet. On postop day 1 she was still experiencing some of the gas pains but was tolerating her diet. She was advanced to full liquid diet and was encouraged to increase her activity. She was then advanced to a soft regular diet. On postop day 2 her pain was well controlled and she was tolerating a soft diet. She was discharged on 02/23/2021. Status at Discharge Functional status at discharge: independent ambulation Overall status at discharge: patient is progressing back to baseline Time Spent with Patient Time attestation: Total time spent providing and/or coordinating discharge services: Time spent: Less than 30 minutes Exam Const: General: cooperative and no acute distress Orientation/consciousness: patient oriented x3 Resp: Effort & Inspection: normal respiratory effort Auscultation: clear to auscultation bilaterally Cardio: Rhythm: regular rhythm Heart sounds: S1 normal heart sound present and S2 normal heart sound present GI: Inspection: non-distended and incision ( Intact with glue) GI Palp: Yes Soft to palpation, Yes Tenderness to palpation present (GI) ( incisional) and No Guarding due to palpation present (GI) Auscultation: normal bowel sounds DS: Data Data Completed and Pending Labs on day of discharge: Labs from last 24 hours 02/23/21 02/23/21 07:36 07:36 WBC 8.0 RBC 4.56 Hgb 14.1 Hct 41.3 MCV 90.6 MCH 30.9 MCHC 34.1 RDW 12.4 Plt Count 220 MPV 10.8 H Sodium 133 L Potassium 3.9 Chloride 100 Carbon Dioxide 25 Anion Gap 8 BUN 7 D Creatinine 0.50 L Estim Creat Clear Calc 88 Estimated GFR > 60 Glucose 106 Calcium 8.9 Discharge Plan Discharge Attending physician on discharge: Rommel Pearce Discharging Clinician: Home Daley Patient Disposition: Home, Self-Care Activity: other - see discharge instructions Diet: other - see discharge instructions Wound Care Instructions: other - see discharge instructions Discharge Instructions: Remove the Scopolamine patch that was placed behind your left ear in 72 hours or less. Wash your hands after touching. Ambulate 3-4 x per day and as tolerated. No lifting over 15-20lbs. May bathe or shower. Stairs are OK. May drive a car in 3 days. Predominantly soft diet- eat slowly, take small bites, chew food well. Patient Instructions: Pain Management (DC) Stand Alone Forms: General Discharge Instructions Follow-up/Referrals: Rommel Pearce MD [Physician] - 2 Weeks Discharge Medications: New hydrocodone-acetaminophen 5-325 mg tablet 1 - 2 tablet PO Q6H PRN (Reason: pain) Qty: 20 RF: 0 ibuprofen 600 mg tablet 600 mg PO Q6H PRN (Reason: bhavik
[2021-02-23 14:00] VITALS: BP 114/73; PULSE 83; RESP 18; TEMP 36.9; O2SAT 98
== END 2021-02-23 15:25 | disposition home or self-care (01) | DRG 328 ==
LOC: ANHSURGERY 14:22 → ANH2MED 02-23 13:26
PROVIDERS: Admitting Provider Surgery; PCP Student in an Organized Health Care Education/Training Program; Visit Provider Surgery
PROC: 0DV44ZZ Restriction of Esophagogastric Junction, Percutaneous Endoscopic Approach (ICD-10-PCS; CPT 43281; principal; 2021-02-21 10:30)
DX: K21.9 Gastro-esophageal reflux disease without esophagitis (principal); K44.9 Diaphragmatic hernia without obstruction or gangrene; R13.10 Dysphagia, unspecified; K22.89 Other specified disease of esophagus; J45.909 Unspecified asthma, uncomplicated; I10 Essential (primary) hypertension; F32.A Depression, unspecified; Z90.49 Acquired absence of other specified parts of digestive tract; E78.5 Hyperlipidemia, unspecified; G47.33 Obstructive sleep apnea (adult) (pediatric)
CPT/HCPCS: 36415; 80048; 85027; A9270; C1713; J0690; J1100; J1170; J1650; J2250; J2370; J2405; J2704; J2710; J3010; J7120

== ENCOUNTER 2021-10-15 00:16 | Day surgery (SDC) | payer MEDICARE, SELFPAY ==
[2021-09-30 11:51] VITALS: BMI 21.4
--- NOTE | 2021-10-14 13:12 | WPDANESEPPF ---
Anes - Initial Pre Proc Eval Procedure: Operation Date: 10/15/21 08:30 Proposed Procedures p Esophagogastroduodenoscopy & Colonoscopy - Westley Cha MD Date/Time: 10/14/21 13:12 Surgeon: Westley Cha MD Pre Op Diagnosis: abdom. distension, nausea, diarrhea Patient Data Age: 66 Gender: F Height: 1.7 m Weight: 62 kg Allergies Allergy/AdvReac Type Severity Reaction Status Date / Time nitrofurantoin Allergy Unknown Nausea Verified 10/15/21 07:36 Home Medications Medication Instructions Recorded Confirmed Type evolocumab 140 mg/mL subcutaneous See Rx Instructions .Route .COMPLEX 01/16/20 09/30/21 History pen injector (Repatha SureClick) lisinopril 10 mg tablet 10 mg PO DAILY 01/16/20 09/30/21 History venlafaxine 75 mg tablet 225 mg PO BID 01/16/20 09/30/21 History cholecalciferol (vitamin D3) 125 125 mcg PO DAILY 07/05/20 09/30/21 History mcg (5,000 unit) capsule dicyclomine 10 mg capsule 10 mg PO TID PRN abdominal 09/09/21 09/30/21 Rx discomfort 1 month #90 caps famotidine 20 mg tablet (Pepcid) 20 mg PO BID 1 month #60 tabs 09/10/21 09/30/21 Rx sodium sul 1.479 gram-potas ch See Rx Instructions PO PER PKG DIR 09/11/21 09/30/21 Rx 0.188 gram-magnes sul 0.225 gram #24 tabs tablet (Sutab) omeprazole 40 mg capsule,delayed See Rx Instructions .Route 09/23/21 09/30/21 Rx release .COMPLEX #30 caps ECG: Date of Service: 02/14/21 Procedure(s): CA 12 lead EKG Accession Number(s): [id number] cc: ~ ? Measurements Intervals? [place]? Rate: ? 74 ? P:? 66 NC: ? 130? QRS:? 60 QRSD: ? 93 ? T:? 39 QT: ? 347? QTc:? 386? Interpretive Statements SINUS RHYTHM POSSIBLE LEFT ATRIAL ENLARGEMENT DELAYED PRECORDIAL R/S TRANSITION BASELINE ARTIFACT- II, III, AVF BORDERLINE ECG Electronically Signed On 02-14-2021 19:30:33 [employer]MBRE[employer] by Alex Huddleston D.O. Patient hx anesthesia problems: none Family hx anesthesia problems: none Results Review: All pre-operative results and documents have been reviewed as part of the pre-operative evaluation. [facility] Past Medical History Medical History Anxiety Depression Diarrhea Dysphagia GERD (gastroesophageal reflux disease) Hiatal hernia HTN (hypertension) Hyperlipidemia Nausea NHAN on CPAP Surgical History Surgical History H/O colonoscopy History of cholecystectomy History of repair of hiatal hernia 02/21/21 Laparoscopic repair of hiatal hernia, laparoscopic Josh fundoplication Family History Family History Grandparent Diabetes mellitus Cerebrovascular accident Social History Social History Smoking status: Never smoker Second hand tobacco smoke exposure: No Alcohol intake: current Alcohol use details: social Substance use: never Substance use type: does not use Living arrangements: with family 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 Info
[2021-10-15 07:38] VITALS: BP 144/92; PULSE 72; RESP 16; TEMP 36.4; O2SAT 100
[2021-10-15] MEDS: LACTATED RINGERS 1,000 ML 150 ML IV CONT (07:51)
--- NOTE | 2021-10-15 08:08 | PM.IMHP ---
H&P: HPI History of Present Illness Date/Time: 10/15/21 08:08 Chief Complaint: Nausea and intermittent diarrhea. Narrative: This is a 66-year-old white female patient who presents for colonoscopy an EGD. Patient reports that she had a hiatal hernia repair with low laparoscopic Josh fundoplication in March of 2021. Since that time she complains of nausea. She notices that this continues despite taking omeprazole daily. She notes that intermittently she will have diarrhea that last for several days described as watery stools. She will have normal stools until this occurs typically episodes of diarrhea occur every 2 weeks. She denies any bleeding. Her family history is noncontributory. She denies any heartburn presently. Family history is noncontributory. Review of Systems Review of Systems: Review of systems noncontributory. [facility] Past Medical History Medical History Anxiety Depression Diarrhea Dysphagia GERD (gastroesophageal reflux disease) Hiatal hernia HTN (hypertension) Hyperlipidemia Nausea NHAN on CPAP Surgical History Surgical History (Updated 10/15/21 @ 08:11 by Westley Cha MD) H/O colonoscopy History of cholecystectomy History of repair of hiatal hernia 02/21/21 Laparoscopic repair of hiatal hernia, laparoscopic Josh fundoplication Family History Family History Grandparent Diabetes mellitus Cerebrovascular accident Social History Social History Smoking status: Never smoker Second hand tobacco smoke exposure: No Alcohol intake: current Alcohol use details: social Substance use: never Substance use type: does not use Living arrangements: with family 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 Gender identity (if verbalized by the patient): Female Spiritual care concerns: No Meds Home Medications and Allergies Home Medications Medication Instructions Recorded Confirmed Type evolocumab 140 mg/mL subcutaneous See Rx Instructions .Route .COMPLEX 01/16/20 09/30/21 History pen injector (Venus Wilson) lisinopril 10 mg tablet 10 mg PO DAILY 01/16/20 09/30/21 History venlafaxine 75 mg tablet 225 mg PO BID 01/16/20 09/30/21 History cholecalciferol (vitamin D3) 125 125 mcg PO DAILY 07/05/20 09/30/21 History mcg (5,000 unit) capsule dicyclomine 10 mg capsule 10 mg PO TID PRN abdominal 09/09/21 09/30/21 Rx discomfort 1 month #90 caps famotidine 20 mg tablet (Pepcid) 20 mg PO BID 1 month #60 tabs 09/10/21 09/30/21 Rx sodium sul 1.479 gram-potas ch See Rx Instructions PO PER PKG DIR 09/11/21 09/30/21 Rx 0.188 gram-magnes sul 0.225 gram #24 tabs tablet (Sutab) omeprazole 40 mg capsule,delayed See Rx Instructions .Route 09/23/21 09/30/21 Rx release .COMPLEX #30 caps Allergies Allergy/AdvReac Type Severity Reaction Status Date / Time nitrofurantoin Allergy Unknown Nausea Verified 10/15/21 07:36 Vital Signs Vital Signs - 24 hr 10/15/21 07:38 Temperature 97.5 F L Pulse Rate 72 Respiratory Rate 16 Blood Pressure 144/92 H Pulse Oximetry 100 Oxygen Delivery Room Air Exam Narrative: Physical exam reveals patient to be alert. Vital signs stable. HEENT exam is unremarkable. Patient is anicteric. Lungs are clear to auscultation and percussion. Heart is without murmur or extra sounds. Abdomen bowel sounds are present soft nontender with no organomegaly. Digital external rectal exam is normal. Assessment and Plan Assessment and plan (1) Nausea: Code(s): R11.0 - Nausea Status: Acute Assessment and Plan: Patient complains of intermittent nausea after laparoscopic Josh fundoplication for hiatal hernia. Plan to add Gas-X or Phazyme to break-up gas bubbles. Patient likely has gas bloat syndrome after Josh fundoplication bec
--- NOTE | 2021-10-15 08:37 | SUR.OPER ---
0828 EGD completed, 0835 colonoscopy started
[2021-10-15 08:51] VITALS: BP 100/60; PULSE 65; RESP 13; O2SAT 100
[2021-10-15 09:01] VITALS: BP 112/53; PULSE 65; RESP 21; O2SAT 100
[2021-10-15 09:11] VITALS: BP 130/69; PULSE 59; RESP 16; O2SAT 100
== END 2021-10-15 09:22 | disposition home or self-care (01) ==
PROVIDERS: PCP Student in an Organized Health Care Education/Training Program; Visit Provider Internal Medicine Gastroenterology
PROC: 0DJ08ZZ Inspection of Upper Intestinal Tract, Via Natural or Artificial Opening Endoscopic (ICD-10-PCS; CPT 43235; principal; 2021-10-15 08:30)
DX: R19.7 Diarrhea, unspecified (principal); K64.8 Other hemorrhoids; K29.00 Acute gastritis without bleeding; K21.9 Gastro-esophageal reflux disease without esophagitis; I10 Essential (primary) hypertension; E78.5 Hyperlipidemia, unspecified; G47.33 Obstructive sleep apnea (adult) (pediatric); F41.9 Anxiety disorder, unspecified; F32.A Depression, unspecified; Z98.890 Other specified postprocedural states; Z87.19 Personal history of other diseases of the digestive system
CPT/HCPCS: 45380; 43239; 87081; 88305; J2704; J7120

== ENCOUNTER 2023-09-16 11:27 | Outpatient (CLI) | payer OTHER, SELFPAY ==
--- NOTE | ~2023-09-16 | MM_ITS ---
EXAMINATION: MM screening darlin BI w milan HISTORY: Screening TECHNIQUE: Craniocaudal and mediolateral oblique 3-D tomosynthesis images were obtained and synthetic 2-D images were generated. CAD analysis was submitted and interpreted. COMPARISON: Comparison to multiple prior studies sequentially, with oldest reviewed study dated 08/2015. BREAST PARENCHYMAL COMPOSITION: Not dense: There are scattered areas of fibroglandular density. FINDINGS: There is no evidence of suspicious mass, calcification, or architectural distortion to sugg est malignancy in either breast. There has been no suspicious interval change. IMPRESSION: 1. No mammographic evidence of malignancy. 2. Recommend routine screening mammography in one year. BI-RADS Category 1: Negative Reviewed, dictated and finalized at location B.
== END 2023-09-16 11:28 ==
PROVIDERS: PCP Student in an Organized Health Care Education/Training Program; Visit Provider Nurse Practitioner
DX: Z12.31 Encounter for screening mammogram for malignant neoplasm of breast (principal)
CPT/HCPCS: 77063; 77067

== ENCOUNTER 2024-01-12 10:22 | Outpatient (CLI) | payer OTHER, SELFPAY ==
--- NOTE | ~2024-01-12 | US_ITS ---
EXAMINATION: US pelvic complete DATE: 01/12/2024 10:39 INDICATION: Pelvic pain. TECHNIQUE: Multiple transabdominal sonographic images of the pelvis were obtained. COMPARISON: None. FINDINGS: The uterus measures 6.3 x 2.9 x 3.1 cm. There is no free fluid in the pelvis. The endometrial complex measures 3 mm in thickness. The right ovary measures 7.4 x 3.6 x 6.7 cm. There is a 5.8 cm hypoechoi c mass in right ovary. The left ovary measures 2.6 x 1.3 x 1.8 cm. IMPRESSION: 1. 5.8 cm mass in right ovary, which may be a hemorrhagic cyst or neoplasm. Pelvis MRI without and wi th contrast or surgical evaluation is recommended. Reviewed, dictated and finalized at location A. IMPRESSION: 1. 5.8 cm mass in right ovary, which may be a hemorrhagic cyst or neoplasm. Pel vis MRI without and with contrast or surgical evaluation is recommended.
== END 2024-01-12 10:23 | disposition home or self-care (01) ==
LOC: MICIMG 10:23
PROVIDERS: PCP Nurse Practitioner Women's Health; Visit Provider Nurse Practitioner Women's Health
DX: R10.2 Pelvic and perineal pain (principal); N83.201 Unspecified ovarian cyst, right side
CPT/HCPCS: 76856

== ENCOUNTER 2024-03-08 10:54 | Outpatient (CLI) | payer OTHER, SELFPAY ==
--- NOTE | ~2024-03-08 | US_ITS ---
Pelvic ultrasound. Clinical History: Right ovarian cyst COMPARISON: 01/12/2024 Technique: Realtime transabdominal and transvaginal scanning of the pelvis was performed. Color flow Doppler and Doppler spectral analysis were performed. Findings: The uterus is anteverted, and measures 5.2 x 2.5 x 3.7 cm. The endometrial stripe has a th ickness of 3 mm. No focal mass is identified. The right ovary measures 5.6 x 3.3 x 4.7 cm. Simple right ovarian cyst measures 4.6 x 2.9 x 3.9 cm. The left ovary is not visualized. No significant left ovarian or adnexal mass is seen. There is no evidence of free fluid in the cul de sac. Impression: 4.6 x 2.9 x 3.9 cm simple right ovarian cyst, mildly decreased from prior exam. Reviewed, dictated and finalized at [facility]. E PRN Impression: 4.6 x 2.9 x 3.9 cm simple right ovarian cyst, mildly decreased from prior exam.
== END 2024-03-08 10:55 | disposition home or self-care (01) ==
LOC: MICIMG 10:54
PROVIDERS: PCP Obstetrics & Gynecology Gynecology; Visit Provider Obstetrics & Gynecology Gynecology
DX: N83.201 Unspecified ovarian cyst, right side (principal)
CPT/HCPCS: 76830

== ENCOUNTER 2024-07-22 08:53 | Outpatient (CLI) | payer OTHER, SELFPAY ==
--- NOTE | ~2024-07-22 | CT_ITS ---
Clinical Indication: Shortness of breath CT Scan of the Chest with Contrast: Technique: Contiguous sections were acquired throughout the chest after intravenous administration of 75 cc of Omnipaque 350. Dose reduction technique was used on this scan by utilizing automated exposu re control and iterative reconstruction technique. The dose-length product (DLP) was 142.61 mGy-cm. COMPARISON: 11/05/2020 Findings: There is no evidence of any significant mediastinal, hilar or axillary lymphadenopathy. There is no f illing defect in the pulmonary arterial tree to suggest pulmonary embolus. There is no evidence of ao rtic dissection or aneurysm. There is no evidence of pleural or pericardial effusion. Stable biapical scarring. No acute pulmonary abnormality seen. Stable calcified granuloma right lower lobe peripherally. Images through the upper abdomen reveal cholecystectomy clips. Impression: No acute abnormality. Stable biapical pulmonary scarring. Reviewed, dictated and finalized at [facility]. Impression: No acute abnormality. Stable biapical pulmonary scarring.
--- OUTSIDE RECORDS SUMMARY | 2024-07-22 09:03 | XMS_ITS | Continuity of Care Document ---
Author Organization [facility] Address [address] [place] [address] Phone Care Team Providers Care Javascript Application Developer Name Role Phone Basilio OD, Westley Unavailable Unavailable Procedures Procedure Date Eye Exam, New Patient Refraction Advance Directives Directive Yes / No Effective Date File Name No Information Encounters Encounter Description Practice Location Reason(s) For Visit Diagnoses Date Provider Providers Copied on Encounter Formerly [facility], [address], [place], [place], [id number], [place] tel:[phone] [facility] No Information [phone] Basilio OD Westley. [address] , [address], [place], [address], [place]. tel:[phone] Family History Family Member Type Diagnosis Age At Onset No Information Payers Payer name Insurance type Covered democrat ID Authoriza tion(s) [facility] CI [id number] Social History Type Description Quantity Date Captured Comments Sex Female Smoking Status No Information Chief Complaint And Reason For Visit No Information Reason For Referral Reason For Referral No Information History Of Present Illness Encounter Date Complaint History Of Prese nt Illness No Information Functional Status Date Functional Assessmen t No Information Instructions Date Instruction Additional Infor mation No Information Assessments Type Assessment Date No Information Patient Care Teams Name Effective Dates (start - stop) Status Members No Information
--- OUTSIDE RECORDS SUMMARY | 2024-07-22 09:03 | XMS_ITS | Clinical Summary ---
Author Organization [facility] Address [facility] [place] [address] Care Team Providers Care Etl Analyst Developer Name Role Phone Johnna Finley COMMUNITY MANAGER Primary Care Provider [phone] Allergies Active Allergy Reactions Criticality Noted Date Comments Nitrofurantoin Hives 10/19/2018 Naproxen GI Upset 11/17/2018 Medications vitamin D3, cholecalciferol, 1000 UNIT Tab tabletIndications: Vitamin D deficiency Take 1 tablet (1,000 Units total) by mouth daily. 90 tablet 2 02/21/20 20 Active evolocumab (REPATHA SURECLICK) 140 MG/ML injection (PEN) ADMINISTER 1 ML(140 MG) UNDER THE SKIN EVERY 14 DAYS 11/15/19 21 Active dicyclomine (BENTYL) 20 MG tabletIndications: Irritable bowel syndrome with diarrhea TAKE 1 TABLET BY MOUTH EVERY 6 HOURS NEEDED FOR ABDOMINAL CRAMPING 90 tablet 1 03/18/20 24 Active venlafaxine (EFFEXOR) 75 MG tabletIndications: Anxiety TAKE 3 TABLETS BY MOUTH TWICE A DAY WITH MEALS 540 tablet 05/11/19 25 Active ondansetron (ZOFRAN-ODT) 4 MG disintegrating tabletIndications: Nausea Take 1 tablet (4 mg total) by mouth every 6 (six) hours as needed for Nausea. 30 tablet 2 06/16/19 25 Active rifAXIMin (XIFAXAN) 550 MG TabIndications:Irr itable bowel syndrome with diarrhea Take 1 tablet (550 mg total) by mouth 3 (three) times daily for 14 days. Has failed dicyclomine. IBS x over 20 years. 42 tablet 1 06/16/19 25 025 sulfamethoxazole-t rimethoprim (BACTRIM DS) 800-160 MG tabletIndications: Dysuria Take 1 tablet by mouth 2 (two) times daily for 3 days. 6 tablet 06/24/19 25 025 Active Problems Problem Noted Date Diagnosed Date History of cervical polypectomy 06/15/2024 Anxiety 09/14/2023 Irritable bowel syndrome with diarrhea Dysphagia, unspecified type 12/19/2019 Vitamin D deficiency 11/17/2018 Hyperglycemia 11/17/2018 Mixed hyperlipidemia 11/17/2018 Essential hypertension 11/17/2018 Gastroesophageal reflux disease 11/17/2018 NHAN (obstructive sleep apnea) 11/17/2018 Pre-syncope 11/17/2018 Encounters Date Type Department Care Team Description 07/13/2024 Telephone [address] [address] [place] [address] Johnna Finley, COMMUNITY MANAGER Blood Pressure 06/23/2024 Telephone [address] [place] [address] Johnna Finley, COMMUNITY MANAGER Follow Up Call 06/15/2024 11:00 AM CDT Office Visit [address] [place] [address] Johnna Finley, COMMUNITY MANAGER Medication Check ; UTI 06/15/2024 Travel 06/09/2024 Patient Outreach [address] [address] [place] [address] Johnna Finley, COMMUNITY MANAGER Pre-visit Gap Closure 05/11/2024 MyChart Message Enc [address] [place] [address] Johnna Finley, COMMUNITY MANAGER venlafaxine from Last 3 Months Immunizations Immunization Administration Dates Next Due FLUAD (IIV, Trivalent, 0.5 M L Pre-filled Syringe) 01/13/2024 Fluzone 6 Months+ Quad (0.5 mL Prefilled Syringe) 12/19/2019,02/15/2019 Fluzone High Dose - >Age 65 (Prefilled Syringe) 01/06/2023,01/21/2022,01/05/2021 PFIZER COVID-19 (CARDENAS CAP), MRNA, LNP-S, PF, 30 MCG/0.3 ML ANA CRISTINA-SUCROSE, IM 07/10/2021 PFIZER COVID-19 (ORIGINAL FO RMULATION, PURPLE CAP) mRNA, LNP-S, PF, 30 MCG/0.3 ML DOSE 01/05/2021,06/22/2020,06/01/2020 Pneumococcal (Prevnar 20) 08/06/2022 Tdap (Boostrix) 02/15/2019 Family History Medical History Relation Comments Tuberculosis Brother Epilepsy Father Hypertension Father Diabetes Maternal Grandmother Heart Disease Mother Lupus Mother Heart Disease Paternal Grandmother Relation Status Comments Brother Father Maternal Grandmother Mother Paternal Grandmother Social History Tobacco Use Types Packs/Day Years Used Date Smoking Tobacco: Never Passive Smoke Exposure: Never Smokeless Tobacco: Never Tobacco Cessation:Counseling Given: No Alcohol Use Standard Drinks/Week Comments Yes 1.7 (1 standard drink = 0.6 oz p ure alcohol) Occ. PHQ-2 Answer Date Recorded Patient Health Questionnaire-2 Score 0 04/09/2023 Comments No Sex and Gender Information Value Date Recorded Sex Assigned at Female 06/15/2024 11:03 AM CDT Legal Sex Female 7:42 PM CDT Gender Identity Female 06/15/2024 11:03 AM CDT Sexual Orientation Straight 06/15/2024 11 :03 AM CDT Occupation Industry Job Start Date Job End Date Not on file Not on file Not on file Not on file Last Filed Vital Signs Vital Sign Reading Time Taken Comments Blood Pressure 130/89 06/15/2024 11:25 AM CDT Pulse 74 06/15/2024 11:03 AM CDT Temperature 36.4 C (97.6 F) 06/15/2024 11:03 AM CDT Respiratory Rate 16 06/15/2024 11:0 3 AM CDT Oxygen Saturation 98% 06/15/2024 11: 03 AM CDT Inhaled Oxygen Concentration - - Weight 64.3 kg (141 lb 12.8 oz) 025 11:03 AM CDT Height 170.2 cm (5' 7 ) 06/15/2024 11:0 3 AM CDT Body Mass Index 22.21 06/15/2024 11:03 AM CDT Plan of Treatment Upcoming Encounters Date Type Department Care Team (Late st Contact Info) Description 09/15/2024 10:20 AM CDT Office Visit [facility] [place] [address] [place] [address] Johnna Finley, JEAN MARIE [address] [place] [address] Health Maintenance Due Date Last Done Comments Zoster Vaccines (1 of 2) 01/24/2006 Dexa Scan (General) 01/24/2021 PHQ-2 (Physician [place]) 04/06/2024 04/09/2023 COVID-19 Vaccine ( season) 2024 01/13/2024, 01/06/2023, 01/21/2022, Additional history exists Mammogram Screening 09/15/2024 09/16/2023, 09/16/2023, 09/16/2023, Additional history exists Annual Medicare Wellness Visit 10/05/2024 Postponed from 01/24/2021 (Future Appointment) DTaP, Tdap and Td Vaccines (2 - Td or Tdap) 02/15/2029 02/15/2019 RSV Immunization or 60+ Years (1 - 1-dose 75+ series) 01/24/2031 Colorectal Cancer Screening Colonoscopy (10 Years) 10/16/2031 10/15/2021, 06/13/2016 Hepatitis C Completed 02/15/2019 Pneumococcal Vaccine: 50+ Years Completed 08/06/2022 Meningococcal B Vaccine Aged Out No l onger eligible based on patient's age to complete this topic Meningococcal Vaccine Aged Out No maranda kasandra eligible based on patient's age to complete this topic RSV Immunizations Under 20 Months Aged Out No longer eligible based on patient's age to complete this topic Procedures Procedure Name Priority Date/Time Associated Diagnosis Comments URINALYSIS AUTO DIP Routine 06/15/2024 Generalized abdominal pain Burning with urination MAMMOGRAM GENERIC (SCAN ORDER) 09/16/2023 COLONOSCOPY GENERIC (SCAN ORDER) 10/15/2021 HEPATITIS C ANTIBODY Routine 02/15/2019 8:43 AM FREIGHT AIR BRAKE FITTER Need for hepatitis C screening test from Last 3 Months or Most Recently Relevant to Health Maintenance Results * URINALYSIS AUTO DIP (06/15/2024) COLOR (U) YELLOW YELLOW [address], [place] TRANSPARENCY CLEAR CLEAR [address], [place] GLUCOSE (U) NEGATIVE NEGATIVE MG/DL MG-[address], [place] BILIRUBIN (U) NEGATIVE NEGATIVE MG-[address], [place] KETONES MG/DL (U) NEGATIVE NEGATIVE MG/DL MG-[address], [place] SPECIFIC GRAVITY (U) 1.020 1.001 - 1.035 MG-[address], [place] BLOOD (U) NEGATIVE NEGATIVE MG-[address], [place] U PH 6.0 5.0 - 9.0 MG-[address], [place] PROTEIN (U) NEGATIVE NEGATIVE mg/dL MG-[address], [place] UROBILINOGEN 0.2 0.2 - 1.0 EU/dL = mg/dL MG-[address], [place] NITRITES NEGATIVE NEGATIVE MG/DL MG-[address], [place] LEUKOCYTES (U) NEGATIVE NEGATIVE MG-[address], [place] URINE SPECIMEN OBTAINED BY CLEAN CATCH PROCEDURE / Unknown 06/15/2024 us Johnna Finley NP URINE ORDERABLES Final Resu lt [address], [place] [address] [place] [address], * MAMMOGRAM GENERIC (SCAN ORDER) (09/16/2023) Anatomical Region Laterality Modality Other 09/16/2023 [facility] Scanned SCANNING Final Resu lt * COLONOSCOPY GENERIC (10/15/2021) 10/15/2021 Narrative 10/15/2021 Ordered by an unspecified provider. us Documents Scanned SCANNING Final Result * HEPATITIS C ANTIBODY (02/15/2019 8:43 AM FREIGHT AIR BRAKE FITTER) HEPATITIS C AB NON-REACT CORY NON-REACT CORY [facility] SIGNAL TO CUTOFF 0.02 <1.00 [facility] Comment: HCV antibody was non-reactive. There is no laboratory evidence of HCV infection. In most cases, no further action is required. However, if recent HCV exposure is suspected, a test for HCV RNA (test code 89195) is suggested. For additional information please refer to http://education.[employer]faq/LYS12y8 (This link is being provided for informational/ educational purposes only.) 02/15/2019 8:43 AM FREIGHT AIR BRAKE FITTER 02/16/2019 2:47 AM FREIGHT AIR BRAKE FITTER Narrative Resulting Agency Comment Performing Organization Information: Site ID: [facility] Name: [facility] Address: [address] [id number] Director: Steffen Zamudio D.O., MPH us Ceasar Claros DO LABORATORY Final Re sult [facility] from Last 3 Months or Most Recently Relevant to Health Maintenance Insurance [employer] Care Teams Etl Analyst Developer Relationship Specialty Start Date End Date Johnna Finley, COMMUNITY MANAGER [address] [facility] [address] [place] [address] PCP - General NURSE PRACTITIONER 09/03/23
--- OUTSIDE RECORDS SUMMARY | 2024-07-22 09:03 | XMS_ITS | Clinical Summary ---
Author Organization [facility] Address [address] [place] [address] Care Team Providers Care Director Of Analytical Development Name Role Phone Ceasar Claros Chsae DO Primary Care Provider + Source Comments [facility],non-owned Affiliates and Associated Physician Practices is amultiple site organization consisting of ambulatory clinics and hospital sitesin [place], [place], [place] and [place]. This disclosure is being madepursuant to the Care Everywhere program and may not contain all information available regarding this patient. Last updated 17.[facility] Allergies Active Allergy Reactions Criticality Noted Date Comments Naproxen GI Discomfort,Nausea and/or Vomiting Low 11/17/2018 Nitrofurantoin Urticaria Medium 10/19/2018 Medications * Be aware that medications may not be up to date on this document. Alwaysverify current medications with the patient. Repatha SureClick 140 MG/ML auto-injector ADMINISTER 1 ML UNDER THE SKIN EVERY 14 DAYS 4 Active lisinopril (Prinivil; Zestril) 10 MG tablet Take 1 (one) tablet by mouth once daily 3 Active venlafaxine (Effexor) 75 MG tablet TAKE 3 TABLETS BY MOUTH TWICE DAILY WITH MEALS 3 Active vitamin D3 (Cholecalcifero l) 25 MCG (1000 UNITS) tablet Take 1 (one) tablet by mouth once daily Active pantoprazole (Protonix) 40 MG packet Take 1 (one) packet by mouth once daily Active Active Problems No known active problems Resolved Problems Problem Noted Date Diagnosed Date Resolved Date Diarrhea 06/01/2023 06/29/2023 Immunizations Immunization Administration Dates Next Due INFLUENZA VACCINE 01/06/2023,01/21/2022,01/06/20 INFLUENZA VACCINE, HIGH-DOSE , QUADR. (FLUZONE HIGH-DOSE QUADRIVALENT; 65Y+), 0.7 ML (HD-IIV4) 01/06/2023,01/21/2022,01/05/2021 INFLUENZA VACCINE, QUADR. (F LUZONE; FLULAVAL; FLUARIX; AFLURIA QUADRIVALENT; 6MO+), 0.5 ML (IIV4) 12/19/2019,02/15/2019 PNEUMOCOCCAL PCV20 CONJ VAC IM 08/06/2022 TDAP (7yrs+) 02/15/2019 Family History Medical History Relation Name Comments Seizures Father Arthritis - Rheumatoid Mother High Cholesterol Mother Hypertension Mother Lupus Mother Relation Name Status Comments Father Mother Social History Tobacco Use Types Packs/Day Years Used Date Smoking Tobacco: Never Smokeless Tobacco: Never Tobacco Cessation:Counseling Given: Not Answered Alcohol Use Standard Drinks/Week Comments Yes 0 (1 standard drink = 0.6 oz pur e alcohol) 2 a month Comments No Sex and Gender Information Value Date Recorded Sex Assigned at Not on file Legal Sex Female 6:17 AM INFANTRY INDIRECT FIRE CREWMEMBER Gender Identity Not on file Sexual Orientation Not on file Last Filed Vital Signs Vital Sign Reading Time Taken Comments Blood Pressure 168/101 07/21/2023 1:29 PM CDT Pulse 76 07/21/2023 1:29 PM CDT Temperature - - Respiratory Rate 18 06/01/2023 2:26 PM INFANTRY INDIRECT FIRE CREWMEMBER Oxygen Saturation 100% 06/01/2023 2:26 PM INFANTRY INDIRECT FIRE CREWMEMBER Inhaled Oxygen Concentration - - Weight 63.9 kg (140 lb 12.8 oz) 07/21/2023 1:29 PM CDT Height 167.6 cm (5' 6 ) 07/21/2023 1:29 PM CDT Body Mass Index 22.73 07/21/2023 1:29 PM CDT Plan of Treatment Health Maintenance Due Date Last Done Comments BONE DENSITY TESTING 1955 COLOGKULWANTRD (AGES 45-75) - COLON CA SCREENING 1955 COLON MONITORING 1956 COLONOSCOPY - COLON CA SCREENING 1956 CT COLONOGRAPHY - COLON CA SCREENING 1955 Colorectal Cancer Screening 1955 FIT - COLON CA SCREENING 1955 FLEX SIG - COLON CA SCREENING 1955 MEDICARE AWV 12 MONTHS 1955 ZOSTER VACCINE (1 of 2) 01/24/2006 MAMMOGRAM 08/23/2022 08/23/2020 COVID-19 VACCINE ( season) 2023 01/06/2023, 01/21/2022, 07/10/2021, Additional history exists DEPRESSION SCREENING 04/06/2024 INFLUENZA VACCINE (Season Ended) 2024 01/06/2023, 01/06/2023, 01/21/2022, Additional history exists LIPID TESTING 07/01/2028 07/02/2023, 08/04, 08/06/2022 DTAP/TDAP/TD VACCINES (2 - Td or Tdap) 02/15/2029 02/15/2019 Respiratory Syncytial Virus (RSV) Vaccine Pt: or over 60 yrs (1 - 1-dose 75+ series) 01/24/2031 HEPATITIS C SCREENING Completed 02/15/2019 PNEUMOCOCCAL VACCINE 50+ Completed 08/06/2022 HEPATITIS B VACCINE Aged Out No longe r eligible based on patient's age to complete this topic HIB VACCINE Aged Out No longer eligi ble based on patient's age to complete this topic HPV VACCINE Aged Out No longer eligi ble based on patient's age to complete this topic MENINGOCOCCAL (Group B) VACCINE SHARED DECISION-MAKING Aged Out No longer eligible based on patient's age to complete this topic MENINGOCOCCAL GROUPS A/C/Y/W VACCINE Aged Out No longer eligible based on patient's age to complete this topic Insurance MEDICARE AETNA [id number] [facility] MEDICARE ADV PPO Care Teams Director Of Analytical Development Relationship Specialty Start Date End Date Ceasar Claros DO [address] [place] [address] PCP - General 10/30/21
--- OUTSIDE RECORDS SUMMARY | 2024-07-22 09:03 | XMS_ITS | Encounter Summary ---
Author Organization [facility] Address [address] [place] [address] Care Team Providers Care Program Advocate Name Role Phone Johnna Finley BENEFITS PROCESSOR Primary Care Provider [phone] Encounter Details Date Type Department Care Team (Late st Contact Info) Description 09/15/2023 MyChart Message Enc [facility] - [place] [address] [place], [place] [id number] Johnna Finley NP [address] [place], [place] [id number] Mammogram Social History Tobacco Use Types Packs/Day Years Used Date Smoking Tobacco: Never Passive Smoke Exposure: Never Smokeless Tobacco: Never Alcohol Use Standard Drinks/Week Comments Yes 1.7 [...] file Not on file Not on file documented as of this encounter Plan of Treatment Upcoming Encounters Date Type Department Care Team (Late st Contact Info) Description 09/15/2024 10:20 AM CDT [facility] [place] [address] [place] [address] Johnna Finley BENEFITS PROCESSOR [address] [facility] [address] [place] [address] documented as of this encounter Visit Diagnoses Not on filedocumented in this encounter Additional Health Concerns Assessment Noted Time PHQ-9 Depression Total Score: 0 12/27/19 21 8:08 AM CDT documented as of this encounter Care Teams Program Advocate Relationship Specialty Start Date End Date Johnna Finley BENEFITS PROCESSOR [address] [place] [address] PCP - General NURSE PRACTITIONER 09/03/23 documented as of this encounter
--- OUTSIDE RECORDS SUMMARY | 2024-07-22 09:03 | XMS_ITS | Encounter Summary ---
Author Organization [facility] Address [address] [place] [address] Care Team Providers Care Die Maker Trim Name Role Phone Johnna Finley PLASTIC FRAME INSERTER Primary Care Provider [phone] Encounter Details Date Type Department Care Team (Late st Contact Info) Description 05/11/2024 MyChart Message Enc [place] [address] [place] [address] Johnna Finley, PLASTIC FRAME INSERTER [address] [place] [address] venlafaxine Social History Tobacco Use Types Packs/Day Years [...] Description 09/15/2024 10:20 AM CDT Office Visit [place] [address] [place] [address] Johnna Finley NP [address] [facility] [address] [place] [address] documented as of this encounter Visit Diagnoses Not on filedocumented in this encounter Additional Health Concerns Assessment Noted Time PHQ-9 Depression Total Score: 0 12/27/19 21 8:08 AM CDT documented as of this encounter Care Teams Die Maker Trim Relationship Specialty Start Date End Date Johnna Finley, PLASTIC FRAME INSERTER [address] [facility] [address] [place] [address] PCP - General NURSE PRACTITIONER 09/03/23 documented as of this encounter
--- OUTSIDE RECORDS SUMMARY | 2024-07-22 09:04 | XMS_ITS | Referral Summary ---
Author Organization [facility] [address] [place] [address] [address] [place] [address] Care Team Providers Care Regulatory Leader Name Role Phone Johnna Finley NP Primary Care Provider [phone] Encounters Date Type Department Care Team Description 07/12/2024 9:30 AM CDT Office Visit [facility] Medical Group Cardiology at [address] [place] [address] Ras Crews MD SOB (shortness of breath) (Primary Dx); Essential hypertension; Hyperlipidemia LDL goal <100; NHAN (obstructive sleep apnea); LVH (left ventricular hypertrophy); Nonrheumatic mitral valve regurgitation 05/06/2024 Telephone [facility] Cardiology [address] [place] [address] [address] [place] [address] Ras Crews MD repatha auth from Last 3 Months Allergies Active Allergy Reactions Criticality Noted Date Comments Nitrofurantoin Monohyd/M-Cryst Hives Medium 11/17 Naproxen Nausea & Vomiting Low 11/17/2018 Medications lisinopril (PRINIVIL,ZESTR IL) 10 mg tablet Take 1 tablet (10 mg total) by mouth daily 2 9 Active venlafaxine (EFFEXOR) 75 mg tablet TK 1 TAB PO TID 3 9 Active cholecalciferol (VITAMIN D-3) 25 mcg (1,000 unit) tablet Take 1 tablet (1,000 Units total) by mouth daily 0 Active albuterol HFA (PROVENTIL HFA,VENTOLIN HFA,PROAIR HFA) 90 mcg/actuation inhaler INHALE 2 INHALATIONS EVERY 4 HOURS NEEDED FOR SHORTNESS OF BREATH OR WHEEZING 1 Active evolocumab (Repatha SureClick) 140 mg/mL pen injector Inject 1 mL (140 mg total) under the skin every 14 (fourteen) days 2 mL 11 5 Active Active Problems Problem Noted Date Diagnosed Date SOB (shortness of breath) 07/12/2024 LVH (left ventricular hypertrophy) 07/12/2024 Nonrheumatic mitral valve regurgitation 07/13/19 25 CARDONA (dyspnea on exertion) 11/17/2018 Gastroesophageal reflux disease 11/17/2018 NHAN (obstructive sleep apnea) 11/17/2018 Essential hypertension 11/17/2018 Hyperlipidemia LDL goal <100 11/17/2018 Pre-syncope 11/17/2018 Social History Tobacco Use Types Packs/Day Years Used Date Smoking Tobacco: Never Cigarettes Smokeless Tobacco: Never Tobacco Cessation:Counseling Given: Not Answered Alcohol Use Standard Drinks/Week Comments Yes 3 (1 standard drink = 0.6 oz pur e alcohol) AUDIT-C Answer Date Recorded Frequency of Alcohol Consumption 2-4 times a thu11/17/2018 Average Number of Drinks 3 or 4 019 Frequency of Binge Drinking Never 11/04 Comments Unknown Sex and Gender Information Value Date Recorded Sex Assigned at Not on file Legal Sex Female 8:25 PM 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 BUFFS Gender Identity Not on file Sexual Orientation Not on file Last Filed Vital Signs Vital Sign Reading Time Taken Comments Blood Pressure 156/94 07/12/2024 9:35 AM CDT Pulse 87 07/12/2024 9:35 AM CDT Temperature - - Respiratory Rate 16 01/04/2021 8:23 AM CDT Oxygen Saturation 95% 07/12/2024 9:35 AM CDT Inhaled Oxygen Concentration - - Weight 63 kg (139 lb) 07/12/2024 9:35 AM CDT Height 170.2 cm (5' 7 ) 07/12/2024 9:35 AM CDT Body Mass Index 21.77 07/12/2024 9:35 AM CDT Plan of Treatment Not on file Procedures Procedure Name Priority Date/Time Associated Diagnosis Comments POCT LIPID PANEL Routine 07/12/2024 9:30 AM CDT Hyperlipidemia LDL goal <100 ECG 12-LEAD Routine 07/12/2024 9:04 AM CDT Nonrheumatic mitral valve regurgitation from Last 3 Months Results * POCT lipid panel (07/12/2024 9:30 AM CDT) Cholesterol, POC 120 mg/dL HDL, POC 57 mg/dL Triglycerides, POC 123 mg/dL LDL Cholesterol POC 38 mg/dL Chol/HDL Ratio, POC 2.1 Non-HDL Cholesterol, POC 63 mg/dL Cholesterol Total, POC 120 mg/dL Capillary blood 07/12/2024 9 :30 AM CDT Ras Crews MD POINT OF CARE TEST ORDERA BLES Final Result * ECG 12 lead (07/12/2024 9:04 AM CDT) Ras Crews MD ECG ORDERABLES Final Res ult from Last 3 Months Insurance [employer] PPO Care Teams Regulatory Leader Relationship Specialty Start Date End Date Johnna Finley NP [address] [place] [address] PCP - General Internal Medicine 07/12/24
--- OUTSIDE RECORDS SUMMARY | 2024-07-22 09:04 | XMS_ITS | Clinical Summary ---
Author [place] [facility] [place] [address] Address [address] [place] [address] Care Team Providers Care Deputy Head Name Role Phone Johnna Finley NP Primary Care Provider [phone] Allergies Active Allergy Reactions Criticality Noted Date [...] ventricular hypertrophy) 07/12/2024 Nonrheumatic mitral valve regurgitation 04/08/20 25 CARDONA (dyspnea on exertion) 11/17/2018 Gastroesophageal reflux disease 11/17/2018 NHAN (obstructive sleep apnea) 11/17/2018 Essential hypertension 11/17/2018 Hyperlipidemia LDL goal <100 11/17/2018 Pre-syncope 11/17/2018 Encounters Date Type Department Care Team Description 07/12/2024 9:30 AM CDT Office Visit [facility] Cardiology at [address] [place] [address] Ras Crews MD SOB (shortness of breath) (Primary Dx); Essential hypertension; Hyperlipidemia LDL goal <100; NHAN (obstructive sleep apnea); LVH (left ventricular hypertrophy); Nonrheumatic mitral valve regurgitation 05/06/2024 Telephone [facility]iology [address] [place] [address] Ras Crews MD repatha auth from Last 3 Months Surgical History Surgery Date Site/Laterality Comments GALLBLADDER SURGERY HERNIA REPAIR Medical History Medical History Date Comments Hyperlipidemia Hypertension Acid indigestion Gallstones Anxiety Sleep apnea Hiatal hernia GERD (gastroesophageal reflux disease) Cataract Family History Medical History Relation Name Comments Depression Brother Austyn Graf Epilepsy Father accidental drowning Father Depression Mother Mirna Zamorano Early Mother Mirna Zamorano Hypertension Mother Mirna Zamorano Depression Sister Kelin mumper Relation Name Status Comments Brother Austyn Graf Alive Father (Age 36) Mother Mirna Zamorano Alive Sister Kelin strauss Alive Social History Tobacco Use Types Packs/Day Years [...] on file Legal Sex Female 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 Gender Identity Not on file Sexual Orientation Not on file Obstetrics History Last Filed Vital Signs Vital Sign Reading [...] 07/12/2024 9:35 AM CDT Plan of Treatment Health Maintenance Due Date Last Done Comments Breast Cancer Screening-Mammogram 1956 Colon Cancer Screening-Colonoscopy 1955 Depression Screening 1956 Fall Risk Assessment 1955 Hepatitis C Screening 1955 Osteoporosis Screening-Bone Density Scan 1955 Hepatitis B Screening 01/24/1974 Pneumococcal vaccine 65+ (1 of 1 - PCV) 01/24/2006 Zoster Vaccine (1 of 2) 01/24/2006 Well Visit 65+ 01/24/2021 Covid-19 Vaccine (4 - 2023-2 5 season) 2023 01/05/2021, 06/22/2020, 06/01/2020 DTaP/Tdap/Td Vaccine (2 - Td or Tdap) 02/15/2029 02/15/2019 Influenza Vaccine Completed 01/13/2024, , 01/21/2022, Additional history exists Procedures Procedure Name Priority Date/Time Associated Diagnosis [...] [employer] PPO Care Teams Deputy Head Relationship Specialty Start Date End Date Johnna Finley NP [address] [facility] [address] [place] [address] PCP - General Internal Medicine 07/12/24
--- OUTSIDE RECORDS SUMMARY | 2024-07-22 09:04 | XMS_ITS | Continuity of Care Document ---
Author Organization [facility] Address [address] [place] [address] Phone Care Team Providers Care Baton Twirler Name Role Phone Yumiko Farmer Unavailable Unavailab le Allergies, Adverse Reactions, Alerts Substance Reaction Status Criticality simvastatin Active No Information NITROFURANTOIN MACROCRYSTALLINE Active No Information nitrofurantoin Active No Informatio n Medications Medication Instructions Dosage Effective Dates (start - stop) Status Comments Effexor XR 75 mg capsule,extended release take 3 capsule by oral route 2 times every day with food 225 MG - Active lisinopril 10 mg-hydrochlorothiazi de 12.5 mg tablet take 1 tablet by oral route every day 1 tablet - Active Lipitor 10 mg tablet take 1 tablet by or al route every day 10 MG - Active omeprazole 40 mg capsule,delayed release take 1 capsule by oral route every day before a meal 40 MG - Active Advance Directives Directive Yes / No Effective Date File Name No Information Encounters Encounter Description Practice Location Reason(s) For Visit Diagnoses Date Provider Providers Copied on Encounter [email or web address], [address], [place], [place], [id number], tel:[phone] [facility] No Information Jessa Calderon. [facility] [address], [id number], [place]. tel:[phone] [email or web address], [address], [place], [place], [id number], tel:[phone] [facility] No Information Jessa Calderon. [facility], [address], [id number], . tel:[phone] Family History Family Member Type Diagnosis Age At Onset Problem (finding) Family history of Diabe penny mellitus Payers Payer name Insurance type Covered libertarian ID Authoriza tion(s) No Information Social History Type Description Quantity Date Captured Comments Alcohol Use Details Unknown Caffeine Use Details Unknown Tobacco Use Status No Information Smoking Status No Information Sex Female Chief Complaint And Reason For Visit No [...]
[2024-07-22 09:44] LABS: Estimated Glomerular Filt Rate > 60
== END 2024-07-22 08:54 | disposition home or self-care (01) ==
PROVIDERS: PCP Nurse Practitioner; Visit Provider Internal Medicine Cardiovascular Disease
DX: R06.02 Shortness of breath (principal)
CPT/HCPCS: 71260; Q9967

== ENCOUNTER 2024-08-05 14:21 | Emergency (ER) | payer OTHER, SELFPAY ==
[2024-08-05 14:32] VITALS: BP 133/89; PULSE 72; RESP 16; TEMP 36.7; O2SAT 96
--- NOTE | 2024-08-05 15:19 | PC.NURSE ---
Pt. took azo so we couldn't run dip.
--- NOTE | 2024-08-05 16:10 | ED_ITS ---
HPI - Female Genitourinary General Chief complaint: Urogenital-Female Stated complaint: UTI Time Seen by Provider: 08/05/24 15:10 Source: patient and RN notes reviewed Mode of arrival: ambulatory Limitations: no limitations History of Present Illness HPI Narrative: 69-year-old female presents Express Care complaining of urinary symptoms for 2 days. Patient reports having burning with urination, nausea, suprapubic pressure, foul-smelling urine, increased frequency and hesitancy. Patient denies any abdominal pain, flank pain, back pain, fevers, body aches, chills. Patient denies any blood in her urine. Patient took an Azos yesterday and it helped with her symptoms. Related Data Home Medications ?Medication ?Instructions ?Recorded ?Confirmed ?Last Taken ?Type evolocumab 140 mg/mL subcutaneous See Rx Instructions .Route .COMPLEX 01/16/20 09/30/21 02/13/21 History pen injector (Repatha SureClick) lisinopril 10 mg tablet 10 mg PO DAILY 01/16/20 09/30/21 02/20/21 History venlafaxine 75 mg tablet 225 mg PO BID 01/16/20 09/30/21 02/21/21 History cholecalciferol (vitamin D3) 125 125 mcg PO DAILY 07/05/20 09/30/21 02/14/21 Hi story mcg (5,000 unit) capsule Allergies Allergy/AdvReac Type Severity Reaction Status Date / Time nitrofurantoin Allergy Unknown Nausea Verified 08/05/24 14:54 Review of Systems Review of Systems: CONSTITUTIONAL: Denies fever, body aches, chills, or sweats. EYES: Denies visual changes, redness, or discharge. ENT: Denies rhinorrhea, congestion, sore throat, or otalgia. CARDIOVASCULAR: Denies chest pain, palpitations, or edema. RESPIRATORY: Denies cough or dyspnea. GASTROINTESTINAL: Denies abdominal pain, vomiting, or diarrhea. Positive for nausea. GENITOURINARY: Positive for dysuria, frequency, hesitancy. Negative for hematuria or flank pain. SKIN: Denies rash or itching. MUSCULOSKELETAL: Denies back pain, joint pain, or myalgia. NEUROLOGIC: Denies headache, numbness, or weakness. PSYCHIATRIC: Denies anxiety or depression. All other systems reviewed are negative, except as documented in HPI. [facility] Past Medical History Medical History Nausea Diarrhea Depression Anxiety Hiatal hernia GERD (gastroesophageal reflux disease) Dysphagia NHAN on CPAP Hyperlipidemia HTN (hypertension) Surgical History Surgical History History of repair of hiatal hernia 02/21/21 Laparoscopic repair of hiatal hernia, laparoscopic Josh fundoplication History of cholecystectomy H/O colonoscopy Family History Family History Grandparent Diabetes mellitus Cerebrovascular accident Social History Social History Smoking status: Never smoker Second hand tobacco smoke exposure: No Alcohol intake: current Alcohol use details: social Substance use: never Substance use type: does not use Living arrangements: with family Occupation/Education: 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 There is no relevant family history pertinent to the patient complaint. Exam Narrative: GENERAL: This is a well-nourished, well-developed adult, in no apparent distress. They are non ill-appearing, nontoxic appearing. HEAD: normocephalic, atraumatic. EYES: Sclera clear/white. Conjunctiva normal. Vision is grossly intact. Extraocular movements intact EARS: External ears normal, Hearing grossly intact. NOSE: External nose normal THROAT: Mucous membranes moist, NECK: Neck supple, non-tender without lymphadenopathy, masses or thyromegaly. CARDIOVASCULAR: Regular rate and rhythm without murmurs, gallops, or rubs. RESPIRATORY: Clear to auscultation. Breath sounds equal bilaterally. No wheezes, rales, or rhonchi. GASTROINTESTINAL: Abdomen soft, flat, non-tender, nondistended. Mild discomfort to the suprapubic region. Bowel sounds are active. No hepato-splenomegaly, or palpable masses. No guarding. No rebound tenderness. SKIN: warm, Dry, intact with no suspicious lesions or rash, good texture and turgor. NEURO: awake, alert, and oriented to person, place and time. There were no obvious focal neurologic abnormalities. EXTREMITIES: No joint tenderness, effusion, or edema noted. BACK: Nontender without deformity. No CVA tenderness. Course Course Emergency Course: Portions of this record may have been created with voice recognition software Level of Care: Express Care Visit Vital Signs Vital signs: Vital Signs Temperature 98.0 F 08/05/24 14:32 Pulse Rate 72 08/05/24 14:32 Respiratory Rate 16 08/05/24 14:32 Blood Pressure 133/89 08/05/24 14:32 Pulse Oximetry 96 08/05/24 14:32 Oxygen Delivery Room Air 08/05/24 14:32 Temperature 98.0 F 08/05/24 14:32 Pulse Rate 72 08/05/24 14:32 Respiratory Rate 16 08/05/24 14:32 Blood Pressure 133/89 08/05/24 14:32 Pulse Oximetry 96 08/05/24 14:32 Oxygen Delivery Room Air 08/05/24 14:32 Reviewed MDM - Female Genitourinary MDM Narrative Medical decision making narrative: Urine dipstick unable to be performed due to patient taking azo prior to arrival. This medication can alter the results of the urine dipstick. Patient's symptoms are consistent with a urinary tract infection. Urine culture is pending. Through shared decision making discussed with patient we can go ahead and treat her for urinary tract infection await for culture and she elected to start treatment now. Will treat empirically with ciprofloxacin. Discussed physical exam findings. Advised supportive measures and signs/symptoms to go to the ER. Pt is appropriate for outpt treatment and f/u. Differential Diagnosis Differential diagnosis: Likely urinary tract infection, cystitis and other (Pyelonephritis) Lab Data Attestation: I reviewed the patient's lab results. Critical Care Time Critical Care Time Critical Care Time: No Discharge Plan Discharge Clinical Impression: Dysuria Patient Disposition: Home Condition: Stable Instructions: Antibiotic Form, Urinary Tract Infection in Older Adults (ED) Additional Instructions: Take the antibiotic as prescribed The urine will be sent of for a culture to identify what type of bacteria is causing your infection. If the culture shows that the antibiotic will not get rid of your infection, you will be notified and a new antibiotic will be called in for you. Increase water intake you will need to follow up with your PCP, call to schedule an appointment. Go to the ER for any worsening symptoms or concerns Patient Language: Sinhala Prescriptions: New ciprofloxacin HCl [Cipro] 500 mg tablet 500 mg PO Q12H 5 Days Qty: 10 0RF No Action cholecalciferol (vitamin D3) 125 mcg (5,000 unit) capsule 125 mcg PO DAILY venlafaxine 75 mg tablet 225 mg PO BID lisinopril 10 mg tablet 10 mg PO DAILY Repatha SureClick 140 mg/mL pen injector See Rx Instructions .ROUTE .COMPLEX Patient Comments: STATES EVERY OTHER THURSDAY Rx Instructions: 140MG SUBCUT 2X MONTHY omeprazole 40 mg capsule,delayed release(DR/EC) See Rx Instructions .ROUTE .COMPLEX Qty: 30 3RF Dose Instruction: TAKE 1 CAPSULE BY MOUTH DAILY Rx Instructions: TAKE 1 CAPSULE BY MOUTH DAILY Follow-up/Referrals: Malia,Johnna Rubio APRN [Primary Care Provider] - Time of Disposition: 15:16
--- OUTSIDE RECORDS SUMMARY | 2024-08-06 14:25 | XMS_ITS | Clinical Summary ---
Author Organization [facility] Address [address] [place] [address] Care Team Providers Care Pot Holder Binder Name Role Phone Ceasar Claros Chase DO Primary Care Provider + Source Comments [facility],non-owned Affiliates and Associated Physician Practices is amultiple site organization consisting of ambulatory clinics and hospital sitesin [place], [place], [place] and [place]. This disclosure is being madepursuant to the Care Everywhere program and may not contain all information available regarding this patient. 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 Gender Identity Not on file Sexual Orientation Not on file Last Filed Vital Signs Vital Sign Reading Time Taken Comments Blood Pressure 168/101 07/21/2023 1:29 PM CDT Pulse 76 07/21/2023 1:29 PM CDT Temperature - - Respiratory Rate 18 06/01/2023 2:26 PM BIBLICAL LANGUAGES PROFESSOR Oxygen Saturation 100% 06/01/2023 2:26 PM BIBLICAL LANGUAGES PROFESSOR Inhaled Oxygen Concentration - - Weight 63.9 [...] complete this topic Insurance MEDICARE [employer] [address] [place] [id number] [facility] MEDICARE ADV PPO Care Teams Pot Holder Binder Relationship Specialty Start Date End Date Ceasar Claros DO [address] [place] [address] PCP - General 10/30/21
--- OUTSIDE RECORDS SUMMARY | 2024-08-06 14:25 | XMS_ITS | Referral Summary ---
Author Organization [facility] [address] Address [address] [place] [address] Care Team Providers Care Drawbridge Tender Name Role Phone Johnna Finley NP Primary Care Provider [phone] Encounters Date Type Department Care Team Description 08/02/2024 Results Follow-Up [facility] Cardiology at [address] [address] Mervin Caldwell MD SOB (shortness of breath) (Primary Dx); CARDONA (dyspnea on exertion) 08/01/2024 Results Follow-Up [facility] Cardiology at [address] [address] Mervin Caldwell MD SOB (shortness of breath) (Primary Dx) 07/28/2024 12:30 PM CDT Ancillary Procedure [facility] Cardiology at [address] [address] Essential hypertension; LVH (left ventricular hypertrophy); Nonrheumatic mitral valve regurgitation 07/22/[address] 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 Gender Identity Not on file Sexual Orientation [...] Procedure Name Priority Date/Time Associated Diagnosis Comments TRANSTHORACIC ECHO (TTE) COMPLETE W DOPPLER/CF WO CONTRAST Routine 07/28/2024 12:58 PM CDT Essential hypertension LVH (left ventricular hypertrophy) Nonrheumatic mitral valve regurgitation SCAN - RADIOLOGY/IMAGING 07/22/2024 POCT LIPID PANEL Routine 07/12/2024 9:30 AM CDT Hyperlipidemia LDL goal <100 ECG 12-LEAD Routine 07/12/2024 9:04 AM CDT Nonrheumatic mitral valve regurgitation from Last 3 Months Results * TRANSTHORACIC ECHO (TTE) COMPLETE W DOPPLER/CF WO CONTRAST (07/28/2024 12:58 PM CDT) Anatomical Region Laterality Modality Ultrasound 07/28/2024 12:3 9 PM CDT Narrative 07/28/2024 1:22 PM CDT [facility] Cardiology [address] , [address], [place] [address] P:[phone] P:[phone] Echocardiographic Report Patient Name: JARAD CAIN M : 1955 Study Date: 07/28/2024 12:39:17 PM Gender: F Tech: Location: [facility] Ref Provider: MERVIN CALDWELL Height(Cm): 170 BSA: 1.72 Weight(Kg): 63 Heart Rate: 76 BP: 156 / 94 Quality: Good Order Provider: MERVIN CALDWELL PROCEDURES: Echocardiographic Report: Transthoracic echocardiogram with complete 2D, M-Mode, and color Doppler examination. With Strain Analysis. INDICATIONS: Left Ventricular Hypertrophy, I10 Essential (primary) hypertension, and I34.0 Nonrheumatic mitral (valve) insufficiency. MEASUREMENTS: 2D/MM Value Range Doppler Value Range EF Mod BP 64 % [ 54 - 74 ] ROGELIO Vmax 2.47 cm2 [ 2.00 - 4.00 ] EF Teich MM 61 % [ 54 - 74 ] AV Mean PG 6 mmHg LVIDd 2D 3.98 cm [ 3.80 - 5.20 ] AV Peak Aj 1.75 m/s [ 1.00 - 1.70 ] LVIDd MM 4.62 cm [ 3.80 - 5.20 ] AV Peak PG 12 mmHg LVIDs 2D 2.17 cm [ 2.20 - 3.50 ] AV VTI 32.23 cm LVIDs MM 3.13 cm [ 2.20 - 3.50 ] LVOT Diam 1.95 cm [ 1.70 - 2.10 ] LVPWd 2D 0.73 cm [ 0.60 - 0.90 ] LVOT Peak Aj 1.35 m/s [ 0.70 - 1.10 ] LVPWd MM 0.76 cm [ 0.60 - 0.90 ] LVOT VTI 29.12 cm IVSd 2D 0.82 cm [ 0.60 - 0.90 ] MV E Peak Aj 0.70 m/s [ 0.60 - 1.30 ] IVSd MM 0.76 cm [ 0.60 - 0.90 ] MV A Peak Aj 0.82 m/s [ 1.00 - 1.20 ] LA Dimension MM 3.71 cm [ 2.70 - 3.80 ] MV Decel Time 221 msec [ 104 - 258 ] AoR Diam MM 3.18 cm [ 2.70 - 3.70 ] PV Peak Aj 1.10 m/s [ 0.40 - 0.80 ] LA Volume Index 22 cc/m2 [ 16 - 34 ] TR Peak Aj 2.41 m/s [ 1.00 - 2.80 ] TR Peak PG 23 mmHg RVSP 31.00 mmHg [ 10.00 - 36.00 ] Lateral E` 0.04 m/s [ 0.10 - 0.15 ] E/E` 19 2D/MM Value Range Doppler Value Range - FINDINGS: Interpretation Site: Exam was interpreted at [facility]. Left Ventricle: Normal left ventricular systolic function. No focal wall motion abnormalities. Normal left ventricular size. Mild concentric left ventricular hypertrophy. Impaired diastolic relaxation Grade I. Ejection fraction is measured at 64 %. Global Longitudinal Strain is -14 %. GLS is abnormal. Right Ventricle: Normal right ventricular size. Normal right ventricular systolic function. Left Atrium: The left atrium is normal in size. Right Atrium: The right atrium is normal in size. Atrial Septum: Normal atrial septum. Mitral Valve: Mitral valve leaflets appear mildly thickened. Mild mitral valve regurgitation. There is no hemodynamically significant mitral stenosis by Doppler. Aortic Valve: No evidence of hemodynamically significant aortic stenosis by Doppler. Aortic cusps appear mildly sclerotic. Trileaflet aortic valve. No aortic regurgitation. Tricuspid Valve: Normal appearance of the tricuspid valve. Estimated peak RVSP is 31 mmHg. Mild tricuspid regurgitation. Pulmonic Valve: Normal appearance of the pulmonic valve. Mild pulmonic regurgitation. Pericardium: Normal pericardium with no significant pericardial effusion. Aorta: Sinus of Valsalva is normal. IVC: Normal size and normal respiratory collapse consistent with normal right atrial pressure (<5 mmHg). Pulmonary Artery: Normal pulmonary artery size. CONCLUSIONS: Normal left ventricular systolic function. No focal wall motion abnormalities. Normal left ventricular size. Mild concentric left ventricular hypertrophy. Impaired diastolic relaxation Grade I. Ejection fraction is measured at 64 %. Global Longitudinal Strain is -14 %. GLS is abnormal. Mitral valve leaflets appear mildly thickened. Mild mitral valve regurgitation. Estimated peak RVSP is 31 mmHg. Mild tricuspid regurgitation. Mild pulmonic regurgitation. Electronically Signed By: Dr. Nick Pemberton [facility] 07/28/2024 1:21:00 PM CDT Procedure Note Nick Pemberton MD - 07/28/2024 [facility] Cardiology [address], [address], [place] [address] P:[phone] P:[phone] Echocardiographic Report Patient Name: JARAD CAIN M : 1955 Study Date: 07/28/2024 12:39:17 PM Gender: F Tech: Location: [facility] Ref Provider: MERVIN CALDWELL Height(Cm): 170 BSA: 1.72 Weight(Kg): 63 Heart Rate: 76 BP: 156 / 94 Quality: Good Order Provider: MERVIN CALDWELL PROCEDURES: Echocardiographic Report: Transthoracic echocardiogram with complete 2D, M-Mode, and color Dopplerexamination. With Strain Analysis. INDICATIONS: Left Ventricular Hypertrophy, I10 Essential (primary) hypertension, andI34.0 Nonrheumatic mitral (valve) insufficiency. MEASUREMENTS: 2D/MM Value Range Doppler ValueRange EF Mod BP 64 % [ 54 - 74 ] ROGELIO Vmax 2.47cm2 [ 2.00 - 4.00 ] EF Teich MM 61 % [ 54 - 74 ] AV Mean PG 6mmHg LVIDd 2D 3.98 cm [ 3.80 - 5.20 ] AV Peak Aj 1.75m/s [ 1.00 - 1.70 ] LVIDd MM 4.62 cm [ 3.80 - 5.20 ] AV Peak PG 12mmHg LVIDs 2D 2.17 cm [ 2.20 - 3.50 ] AV VTI 32.23cm LVIDs MM 3.13 cm [ 2.20 - 3.50 ] LVOT Diam 1.95 cm[ 1.70 - 2.10 ] LVPWd 2D 0.73 cm [ 0.60 - 0.90 ] LVOT Peak Aj 1.35m/s [ 0.70 - 1.10 ] LVPWd MM 0.76 cm [ 0.60 - 0.90 ] LVOT VTI 29.12cm IVSd 2D 0.82 cm [ 0.60 - 0.90 ] MV E Peak Aj 0.70m/s [ 0.60 - 1.30 ] IVSd MM 0.76 cm [ 0.60 - 0.90 ] MV A Peak Aj 0.82m/s [ 1.00 - 1.20 ] LA Dimension MM 3.71 cm [ 2.70 - 3.80 ] MV Decel Time 221msec [ 104 - 258 ] AoR Diam MM 3.18 cm [ 2.70 - 3.70 ] PV Peak Aj 1.10m/s [ 0.40 - 0.80 ] LA Volume Index 22 cc/m2 [ 16 - 34 ] TR Peak Aj 2.41m/s [ 1.00 - 2.80 ] TR Peak PG 23 mmHg RVSP 31.00 mmHg [ 10.00 - 36.00 ] Lateral E` 0.04 m/s [ 0.10 - 0.15 ] E/E` 19 2D/MM Value Range Doppler ValueRange - FINDINGS: Interpretation Site: Exam was interpreted at [facility]. Left Ventricle: Normal left ventricular systolic function. No focal wall motionabnormalities. Normal left ventricular size. Mild concentric left ventricular hypertrophy.Impaired diastolic relaxation Grade I. Ejection fraction is measured at 64 %. GlobalLongitudinal Strain is -14 %. GLS is abnormal. Right Ventricle: Normal right ventricular size. Normal right ventricular systolicfunction. Left Atrium: The left atrium is normal in size. Right Atrium: The right atrium is normal in size. Atrial Septum: Normal atrial septum. Mitral Valve: Mitral valve leaflets appear mildly thickened. Mild mitral valveregurgitation. There is no hemodynamically significant mitral stenosis by Doppler. Aortic Valve: No evidence of hemodynamically significant aortic stenosis by Doppler.Aortic cusps appear mildly sclerotic. Trileaflet aortic valve. No aorticregurgitation. Tricuspid Valve: Normal appearance of the tricuspid valve. Estimated peak RVSP is 31 mmHg.Mild tricuspid regurgitation. Pulmonic Valve: Normal appearance of the pulmonic valve. Mild pulmonic regurgitation. Pericardium: Normal pericardium with no significant pericardial effusion. Aorta: Sinus of Valsalva is normal. IVC: Normal size and normal respiratory collapse consistent with normal rightatrial pressure (<5 mmHg). Pulmonary Artery: Normal pulmonary artery size. CONCLUSIONS: Normal left ventricular systolic function. No focal wall motionabnormalities. Normal left ventricular size. Mild concentric left ventricular hypertrophy.Impaired diastolic relaxation Grade I. Ejection fraction is measured at 64 %. GlobalLongitudinal Strain is -14 %. GLS is abnormal. Mitral valve leaflets appear mildly thickened. Mild mitral valveregurgitation. Estimated peak RVSP is 31 mmHg. Mild tricuspid regurgitation. Mild pulmonic regurgitation. Electronically Signed By: Dr. Nick Pemberton [facility] 07/28/2024 1:21:00 PM CDT Mervin Caldwell MD CV ECHO PROCEDURES Final Result * SCAN - RADIOLOGY/IMAGING (07/22/2024) Anatomical Region Laterality Modality Other Mervin Caldwell MD Final Res ult * POCT lipid panel (07/12/2024 9:30 AM CDT) Cholesterol, POC 120 mg/dL HDL, POC 57 mg/dL Triglycerides, POC 123 mg/dL LDL Cholesterol POC 38 mg/dL Chol/HDL Ratio, POC 2.1 Non-HDL Cholesterol, POC 63 mg/dL Cholesterol Total, POC 120 mg/dL Capillary blood 07/12/2024 9 :30 AM CDT us Mervin Caldwell MD POINT OF CARE TEST ORDERA BLES Final Result * ECG 12 lead (07/12/2024 9:04 AM CDT) us Mervin Caldwell MD ECG ORDERABLES Final Res ult from Last 3 Months Insurance [address] [id number] [employer] CIGNA [address] [id number] [employer] CHOICE PPO Care Teams Drawbridge Tender Relationship Specialty Start Date End Date Johnna Finley NP [address] [place] [address] PCP - General Internal Medicine 07/12/24
--- OUTSIDE RECORDS SUMMARY | 2024-08-06 14:25 | XMS_ITS | Clinical Summary ---
Author Organization [facility] [address] Address [address] [place] [address] Care Team Providers Care Garden Center Manager Name Role Phone Johnna Finley NP Primary Care Provider [phone]- [phone] Allergies Active Allergy Reactions Criticality Noted Date [...] Department Care Team Description 08/02/2024 Results Follow-Up [facility] Cardiology at [address] [address] Mervin Caldwell MD SOB (shortness of breath) (Primary Dx); CARDONA (dyspnea on exertion) 08/01/2024 Results Follow-Up [facility] Cardiology at [address] [address] Mervin Caldwell MD SOB (shortness of breath) (Primary Dx) 07/28/2024 12:30 PM CDT Ancillary Procedure [facility] Cardiology at [address] [address] Essential hypertension; LVH (left ventricular hypertrophy); Nonrheumatic mitral valve regurgitation 07/22/2024 Orders Only [facility] Health Information Management [address] [place] [address] Mervin Caldwell MD 07/12/2024 9:30 AM CDT [facility] Visit [facility] Cardiology at [address] [address] Mervin Caldwell MD SOB (shortness of breath) (Primary Dx); Essential hypertension; Hyperlipidemia LDL goal <100; NHAN (obstructive sleep apnea); LVH (left ventricular hypertrophy); Nonrheumatic mitral valve regurgitation from Last 3 Months Surgical History Surgery [...] Frequency of Alcohol Consumption 2-4 times a mon 11/17/2018 Average Number of Drinks 3 or 4 019 Frequency of Binge Drinking Never 11/04 Comments Unknown Sex and Gender Information Value Date Recorded Sex Assigned at Not on file Legal Sex 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 Left Ventricle: Normal left ventricular systolic [...] regurgitation. Electronically Signed By: Dr. Nick Pemberton [facility] 07/28/2024 1:21:00 PM CDT Procedure Note Nick Pemberton MD - 07/28/2024 [facility] Cardiology [facility] [address], [address], [place] [address] P:[phone] P:[phone] Echocardiographic Report Patient Name: JARAD CAIN M [...] FINDINGS: Interpretation Site: Exam was interpreted at [facility]. Left Ventricle: Normal left ventricular systolic [...] regurgitation. Electronically Signed By: Dr. Nick Pemberton [facility] 07/28/2024 1:21:00 PM CDT Mervin Caldwell MD [...] Capillary blood 07/12/2024 9 :30 AM CDT Mervin Caldwell MD POINT OF CARE TEST ORDERA BLES Final Result * ECG 12 lead (07/12/2024 9:04 AM CDT) us Mervin Caldwell MD ECG ORDERABLES Final Res ult from Last 3 Months Insurance [employer] CIG[employer] CHOICE PPO Care Teams Garden Center Manager Relationship Specialty Start Date End Date Johnna Finley NP [address] [place] [address] PCP - General Internal Medicine 07/12/24
--- OUTSIDE RECORDS SUMMARY | 2024-08-06 14:26 | XMS_ITS | Clinical Summary ---
Author Organization [facility] Address [facility] [place] [address] Care Team Providers Care Timekeeper Supervisor Name Role Phone Johnna Finley BODY AND FENDER WORKER Primary Care Provider Allergies Active Allergy Reactions Criticality Noted Date Comments Nitrofurantoin Hives 10/19/2018 Naproxen GI Upset 11/17/2018 Medications vitamin D3, cholecalciferol, 1000 UNIT Tab tabletIndications: Vitamin D deficiency Take 1 tablet (1,000 Units total) by mouth daily. 90 tablet 2 0 Active evolocumab (REPATHA SURECLICK) 140 MG/ML injection (PEN) ADMINISTER 1 ML(140 MG) UNDER THE SKIN EVERY 14 DAYS 1 Active dicyclomine (BENTYL) 20 MG tabletIndications: Irritable bowel syndrome with diarrhea TAKE 1 TABLET BY MOUTH EVERY 6 HOURS NEEDED FOR ABDOMINAL CRAMPING 90 tablet 1 4 Active venlafaxine (EFFEXOR) 75 MG tabletIndications: Anxiety TAKE 3 TABLETS BY MOUTH TWICE A DAY WITH MEALS 540 tablet 5 Active ondansetron (ZOFRAN-ODT) 4 MG disintegrating tabletIndications: Nausea Take 1 tablet (4 mg total) by mouth every 6 (six) hours as needed for Nausea. 30 tablet 2 5 Active Active Problems Problem Noted Date Diagnosed Date History of cervical polypectomy 06/15/2024 Anxiety 09/14/2023 Irritable bowel syndrome with diarrhea 4 Dysphagia, unspecified type 12/19/2019 Vitamin D deficiency 11/17/2018 Hyperglycemia 11/17/2018 Mixed hyperlipidemia 11/17/2018 Essential hypertension 11/17/2018 Gastroesophageal reflux disease 11/17/2018 NHAN (obstructive sleep apnea) 11/17/2018 Pre-syncope 11/17/2018 Encounters Date Type Department Care Team Description 07/13/2024 Telephone [place] [address] [address] [address] [place] [address] Johnna Finley, BODY AND FENDER WORKER Blood Pressure 06/23/2024 Telephone [place] [address] [address] [address] [place] [address] Johnna Finley, BODY AND FENDER WORKER Follow Up Call 06/15/2024 11:00 AM CDT Office Visit [place] [address] [address] [address] [place] [address] Johnna Finley, BODY AND FENDER WORKER Medication Check ; UTI 06/15/2024 Travel 06/09/2024 Patient Outreach [place] [address] [address] [address] [place] [address] Johnna Finley, BODY AND FENDER WORKER Pre-visit Gap Closure 05/11/2024 MyChart Message Enc [place] [address] [address] [address] [place] [address] Johnna Finley, BODY AND FENDER WORKER venlafaxine from Last 3 Months Immunizations Immunization [...] Description 09/15/2024 10:20 AM CDT Office Visit [facility] [place] [address] [place] [address] Malia, Johnna N, BODY AND FENDER WORKER [address] [place] [address] Health Maintenance Due Date Last Done Comments Zoster Vaccines (1 of 2) 01/24/2006 Dexa Scan (General) 01/24/2021 PHQ-2 (Physician [place]) 04/06/2024 04/09/2023 COVID-19 Vaccine ( season) 2024 [...] HEPATITIS C ANTIBODY Routine 02/15/2019 8:43 AM KENNEL WORKER Need for hepatitis C screening test from Last 3 Months or Most Recently Relevant to Health Maintenance Results * URINALYSIS AUTO DIP (06/15/2024) COLOR (U) YELLOW YELLOW [address], [place] TRANSPARENCY CLEAR CLEAR MG[address], [place] GLUCOSE (U) NEGATIVE NEGATIVE MG/DL MG[address], [place] BILIRUBIN (U) NEGATIVE NEGATIVE MG-[address], [place] KETONES MG/DL (U) NEGATIVE NEGATIVE MG/DL MG-[address], [place] SPECIFIC GRAVITY (U) 1.020 1.001 - 1.035 MG-[address], [place] BLOOD (U) NEGATIVE NEGATIVE MG-[address], [place] U PH 6.0 5.0 - 9.0 MG-[address], [place] PROTEIN (U) NEGATIVE NEGATIVE mg/dL MG-[address], [place] UROBILINOGEN 0.2 0.2 - 1.0 EU/dL = mg/dL MG-[address], [place] NITRITES NEGATIVE NEGATIVE MG/DL MG-[address], [place] LEUKOCYTES (U) NEGATIVE NEGATIVE MG-[address], [place] URINE SPECIMEN OBTAINED BY CLEAN CATCH PROCEDURE / Unknown 06/15/2024 us Johnna Finley NP URINE ORDERABLES Final Resu lt [address], [facility] [address] [place] [address], * MAMMOGRAM GENERIC (SCAN ORDER) (09/16/2023) Anatomical Region Laterality Modality Other 09/16/2023 us [facility] Scanned SCANNING Final Resu lt * COLONOSCOPY GENERIC (10/15/2021) 10/15/2021 Narrative 10/15/2021 Ordered by an unspecified provider. us Documents Scanned SCANNING Final Result * HEPATITIS C ANTIBODY (02/15/2019 8:43 AM KENNEL WORKER) HEPATITIS C AB NON-REACT CORY NON-REACT CORY [facility] - INDER ORDERS SIGNAL TO CUTOFF 0.02 <1.00 [facility] Comment: HCV antibody was non-reactive. There is no laboratory evidence of HCV infection. In most cases, no further action is required. However, if recent HCV exposure is suspected, a test for HCV RNA (test code 91635) is suggested. For additional information please refer to http://education.Nezasa/faq/HAM27h2 (This link is being provided for informational/ educational purposes only.) 02/15/2019 8:43 AM KENNEL WORKER 02/16/2019 2:47 AM KENNEL WORKER Narrative Resulting Agency Comment Performing Organization Information: Site ID: [place] Name: [facility] Address: [address] [address] Director: Steffen Zamudio D.O., MPH Ceasar lCaros DO LABORATORY Final Re sult [facility] from Last 3 Months or Most Recently Relevant to Health Maintenance Insurance [employer] Care Teams Timekeeper Supervisor Relationship Specialty Start Date End Date Johnna Finley NP [address] [place] [address] PCP - General NURSE PRACTITIONER 09/03/23
--- OUTSIDE RECORDS SUMMARY | 2024-08-06 14:26 | XMS_ITS | Encounter Summary ---
Author Organization [facility] Address [address] [place] [address] Care Team Providers Care Rn Training Name Role Phone Johnna Finley ADULT PROTECTIVE CASEWORKER Primary Care Provider [phone] Encounter Details Date Type Department Care Team (Late st Contact Info) Description 05/11/2024 MyChart Message Enc [place] [address] [place] [address] Johnna Finley, ADULT PROTECTIVE CASEWORKER [address] [place] [address] venlafaxine Social History Tobacco Use Types Packs/Day [...] Description 09/15/2024 10:20 AM CDT Office Visit [place] [address] [place] [address] Johnna Finley NP [address] [place] [address] documented as of this encounter Visit Diagnoses Not on filedocumented in this encounter Additional Health Concerns Assessment Noted Time PHQ-9 Depression Total Score: 0 12/27/19 21 8:08 AM CDT documented as of this encounter Care Teams Rn Training Relationship Specialty Start Date End Date Johnna Finley, ADULT PROTECTIVE CASEWORKER [address] [place] [address] PCP - General NURSE PRACTITIONER 09/03/23 documented as of this encounter
--- OUTSIDE RECORDS SUMMARY | 2024-08-06 14:26 | XMS_ITS | Encounter Summary ---
Author Organization [facility] Address [facility] [place] [address] Care Team Providers Care Customer Insight Analyst Name Role Phone Johnna Finley CAR RENTAL SERVICE ATTENDANT Primary Care Provider [phone] Encounter Details Date Type Department Care Team (Late st Contact Info) Description 09/15/2023 MyChart Message Enc [facility] [place] [address] [place], [place] [id number] Johnna Finley NP [address] [place], [place] [id number] Mammogram Social History Tobacco Use Types Packs/Day [...] Description 09/15/2024 10:20 AM CDT [facility] [place] [address] [place] [address] Johnna Finley CAR RENTAL SERVICE ATTENDANT [address] [place] [address] documented as of this encounter Visit Diagnoses Not on filedocumented in this encounter Additional Health Concerns Assessment Noted Time PHQ-9 Depression Total Score: 0 12/27/19 21 8:08 AM CDT documented as of this encounter Care Teams Customer Insight Analyst Relationship Specialty Start Date End Date Johnna Finley CAR RENTAL SERVICE ATTENDANT [address] [place] [address] PCP - General NURSE PRACTITIONER 09/03/23 documented as of this encounter
== END 2024-08-05 15:24 | disposition home or self-care (01) ==
PROVIDERS: PCP Nurse Practitioner
DX: R30.0 Dysuria (principal); I10 Essential (primary) hypertension; E78.5 Hyperlipidemia, unspecified; G47.33 Obstructive sleep apnea (adult) (pediatric); K21.9 Gastro-esophageal reflux disease without esophagitis; F41.9 Anxiety disorder, unspecified; F32.A Depression, unspecified
CPT/HCPCS: 87086; 99213; G0463